=== PATIENT | female | born 1965 | race Hispanic/Latino ===

== ENCOUNTER 2017-01-06 05:41 | Emergency (ER) | payer OTHER ==
[2017-01-06 05:47] VITALS: BMI 43.5
--- NOTE | 2017-01-06 06:16 | ED PDOC ---
Arrival/HPI - General Historian: Patient - History of Present Illness Time/Duration: 24 hours Symptom Course: Unchanged <Nigel Kahn - Last Filed: 01/06/17 06:37> <Clarence Hansen - Last Filed: 01/06/17 09:02> - General Chief Complaint: Back Pain Time Seen by Provider: 01/06/17 05:43 - History of Present Illness Narrative History of Present Illness (Text): 01/06/17 06:07 51 year old female with past medical history of RA, lumbar and cervical laminectomy, PVD presents to [facility] complaining of left lower back pain. Patient reports she hurt her back last night when she bend over to pickup something on the floor. She said it felt like her back was locked and the excoriating pain started. She describes the pain as sharp in quality and it radiates down to both of her legs. Patient states the pain is worse with any movement and she does not take any pain medications at home. Patient denies having urinary or fecal incontinence. She further denies headache, fever, chills , shortness of breath, chest pain, nausea or vomiting. (Nigel Kahn) Past Medical History - Provider Review Nursing Documentation Reviewed: Yes - Infectious Disease Hx of Infectious Diseases: None - Tetanus Immunization Tetanus Immunization: Up to Date (tetanus 2 yrs ago) - Past Medical History Past Medical History: No Previous - Cardiac Hx Cardiac Disorders: Yes Hx Peripheral Edema: Yes Hx Peripheral Vascular Disease: Yes - Pulmonary Hx Respiratory Disorders: Yes Hx Bronchitis: Yes - Neurological Hx Neurological Disorder: Yes Hx Vertigo: Yes - HEENT Hx HEENT Disorder: No - Renal Hx Renal Disorder: No - Endocrine/Metabolic Hx Endocrine Disorders: No - Hematological/Oncological Hx Blood Disorders: No - Integumentary Hx Dermatological Disorder: Yes Hx Cellulitis: Yes (s/p arthroscopy right knee) - Musculoskeletal/Rheumatological Hx Musculoskeletal Disorders: Yes Hx Arthritis: Yes Hx Back Pain: Yes - Gastrointestinal Hx Gastrointestinal Disorders: No - Genitourinary/Gynecological Hx Genitourinary Disorders: No - Psychiatric Hx Psychophysiologic Disorder: No Hx Substance Use: No - Surgical History Hx Appendectomy: Yes Hx Cholecystectomy: Yes Hx Orthopedic Surgery: Yes Other/Comment: upper spine surgery jul 2014, lumbar surgery - Anesthesia Hx Anesthesia: Yes Hx Anesthesia Reactions: No Hx Malignant Hyperthermia: No - Suicidal Assessment Feels Threatened In Home Enviroment: No <Nigel Kahn - Last Filed: 01/06/17 06:37> Family/Social History - Physician Review Nursing Documentation Reviewed: Yes Family/Social History: No Known Family HX Smoking Status: Never Smoked Hx Alcohol Use: No Hx Substance Use: No Hx Substance Use Treatment: No <Nigel Kahn - Last Filed: 01/06/17 06:37> Allergies/Home Meds <Nigel Kahn - Last Filed: 01/06/17 06:37> <Clarence Hansen - Last Filed: 01/06/17 09:02> Allergies/Adverse Reactions: Allergies iodine Allergy (Verified 06/01/16 19:34) RASH Penicillins Adverse Reaction (Verified 03/17/16 21:27) URTICARIA Home Medications: Home Meds Medication Instructions Recorded Confirmed Suvorexant [Belsomra] 20 mg PO HS 03/07/16 03/17/16 Furosemide [Lasix] 1 tab PO DAILY 03/17/16 03/17/16 Review of Systems - Physician Review All systems were reviewed & negative as marked: Yes - Review of Systems Constitutional: Normal Eyes: Normal ENT: Normal Respiratory: Normal. absent: SOB, Cough Cardiovascular: Normal. absent: Chest Pain, Syncope Gastrointestinal: Normal. absent: Abdominal Pain, Stool Changes, Constipation, Diarrhea, Nausea, Vomiting Musculoskeletal: Back Pain (lower left pain) Skin: Normal. absent: Rash, Ulcer Neurological: Normal. absent: Headache, Dizziness Endocrine: Normal. absent: Diaphoresis, Polyuria, Polydipsia Hemo/Lymphatic: Normal Psychiatric: Normal. absent: Anxiety, Depression <Nigel Kahn - Last Filed: 01/06/17 06:37> Physical Exam Vital Signs Reviewed: Yes Temperature: Afebrile Blood Pressure: Normal Pulse: Regular Respiratory Rate: Normal Appearance: Positive for: Well-Appearing, Non-Toxic, Comfortable Pain Distress: Moderate Mental Status: Positive for: Alert and Oriented X 3 - Systems Exam Head: Present: Atraumatic, Normocephalic Pupils: Present: PERRL Extroacular Muscles: Present: EOMI Conjunctiva: Present: Normal Neck: Present: Normal Range of Motion Respiratory/Chest: Present: Clear to Auscultation, Good Air Exchange. No: Respiratory Distress, Accessory Muscle Use Cardiovascular: Present: Regular Rate and Rhythm, Normal S1, S2. No: Murmurs Abdomen: Present: Normal Bowel Sounds. No: Tenderness, Distention, Peritoneal Signs Back: Present: Normal Inspection, Paraspinal Tenderness (left side tenderness in the lumbar region). No: Midline Tenderness Upper Extremity: Present: Normal Inspection, Neurovascularly Intact. No: Cyanosis, Edema Lower Extremity: Present: Edema (chronic bilateral lower extremity edema), Neurovascularly Intact Neurological: Present: GCS=15, CN II-XII Intact, Speech Normal Skin: Present: Warm, Dry, Normal Color. No: Rashes Psychiatric: Present: Alert, Oriented x 3, Normal Insight, Normal Concentration <Nigel Kahn - Last Filed: 01/06/17 06:37> Vital Signs Temp Pulse Resp BP Pulse Ox 01/06/17 08:00 97.6 F 71 18 116/62 96 01/06/17 06:59 97.8 F 80 20 138/78 98 01/06/17 05:53 97.9 F 79 18 134/72 100 Medical Decision Making <Nigel Kahn - Last Filed: 01/06/17 06:37> - Transfer of Care Patient signed out to Dr:Chao cesar response to meds and dispo <Clarence Hansen - Last Filed: 01/06/17 09:02> ED Course and Treatment: 01/06/17 06:22 -Toradol -Flexeril -Reassess DDx: Chronic back pain, sciatica, paraspinal muscle strain (Nigel Kahn) 01/06/17 06:46pt seen and examined with resident, agree with plan and exam treatment course (Clarence Hansen) - Medication Orders Current Medication Orders: Discontinued Medications Cyclobenzaprine HCl (Flexeril) 10 mg PO STAT STA Stop: 01/06/17 06:07 Last Admin: 01/06/17 06:32 Dose: 10 MG Ketorolac Tromethamine (Toradol) 60 mg IM STAT STA Stop: 01/06/17 06:06 Last Admin: 01/06/17 06:32 Dose: 60 MG IM Administration Charges Document 01/06/17 06:32 MICHELLE (Rec: 01/06/17 06:32 Fabio [id number]) Injection Site MAR Injection Site Left Gluteus Ryan Charges for Administration # of IM Administrations 1 - PA / BUILDING ESTIMATOR / Resident Statement MD/ has examined the patient and agrees with the treatment plan. <Clarence Hansen - Last Filed: 01/06/17 09:02> Disposition/Present on Arrival - Present on Arrival Any Indicators Present on Arrival: No History of DVT/PE: No History of Uncontrolled Diabetes: No Urinary Catheter: No History of Decub. Ulcer: No History Surgical Site Infection Following: None - Disposition Have Diagnosis and Disposition been Completed?: Yes Disposition Time: 07:00 <KahnNigel - Last Filed: 01/06/17 06:37> - Present on Arrival Any Indicators Present on Arrival: No - Disposition Have Diagnosis and Disposition been Completed?: Yes Disposition Time: 07:00 <Clarence Hansen - Last Filed: 01/06/17 09:02> - Disposition Diagnosis: Low back pain, Chronic back pain Disposition: HOME/ ROUTINE Condition: IMPROVED Discharge Instructions (ExitCare): Acute Low Back Pain (DC), Back Exercises (ED ) Additional Instructions: Daniel, thank you for letting us take care of you today. Your provider was Dr. Cesar. You were treated for Back Pain. The emergency medical care you received today was directed at your acute symptoms. If you were prescribed any medication, please fill it and take as directed. It may take several days for your symptoms to resolve. Return to the Emergency Department if your symptoms worsen, do not improve, or if you have any other problems. Please contact your doctor or call one of the physicians/clinics you have been referred to that are listed on the Patient Visit Information form that is included in your discharge packet. Bring any paperwork you were given at discharge with you along with any medications you are taking to your follow up visit. Our treatment cannot replace ongoing medical care by a primary care provider (PCP) outside of the emergency department. Thank you for allowing the [facility] team to be part of your care today. If you had an X-Ray or CT scan: A Radiologist will review the ED reading if any change in treatment is needed we will contact you. If you had a blood, urine, or wound culture: It will take several days for the results, if any change in treatment is needed we will contact you. If you had an STI test: It will take 48 hours for the results. Please call after 1 week if you have not heard back. Referrals: Olena Tobin MD [Primary Care Provider] - Follow up with primary Forms: WORK NOTE
--- NOTE | 2017-01-06 07:53 | ED PDOC ---
Physical Exam Vital Signs Reviewed: Yes Vital Signs Temp Pulse Resp BP Pulse Ox 01/06/17 08:00 97.6 F 71 18 116/62 96 01/06/17 06:59 97.8 F 80 20 138/78 98 01/06/17 05:53 97.9 F 79 18 134/72 100 Temperature: Afebrile Blood Pressure: Normal Pulse: Regular Respiratory Rate: Normal Medical Decision Making ED Course and Treatment: 01/06/17 07:49 Patient signed out to me by Dr. Hansen. Pending re-evaluation. 01/06/17 08:05 On re-evaluation, patient able to ambulate with cane at baseline. Patient denies any numbness or weakness. Patient states she feels better and is in no acute distress. I have discussed the plan with the patient, who expresses understanding. Patient in agreement with plan to be discharged home. Patient reports she has Flexeril at home and does not need any additional medication. Patient is stable for discharge. Patient was instructed to follow up with physician or return if symptoms worsen or new concerning symptoms arise. - Medication Orders Current Medication Orders: Discontinued Medications Cyclobenzaprine HCl (Flexeril) 10 mg PO STAT STA Stop: 01/06/17 06:07 Last Admin: 01/06/17 06:32 Dose: 10 MG Ketorolac Tromethamine (Toradol) 60 mg IM STAT STA Stop: 01/06/17 06:06 Last Admin: 01/06/17 06:32 Dose: 60 MG IM Administration Charges Document 01/06/17 06:32 RJR (Rec: 01/06/17 06:32 RJR [id number]) Injection Site MAR Injection Site Left Gluteus Ryan Charges for Administration # of IM Administrations 1 - Scribe Statement The provider has reviewed the documentation as recorded by the Chasityibwilfrid Fatima Provider Scribe Attestation: All medical record entries made by the Scribe were at my direction and personally dictated by me. I have reviewed the chart and agree that the record accurately reflects my personal performance of the history, physical exam, medical decision making, and the department course for this patient. I have also personally directed, reviewed, and agree with the discharge instructions and disposition. Disposition/Present on Arrival - Present on Arrival Any Indicators Present on Arrival: No History of DVT/PE: No History of Uncontrolled Diabetes: No Urinary Catheter: No History of Decub. Ulcer: No History Surgical Site Infection Following: None - Disposition Have Diagnosis and Disposition been Completed?: Yes Diagnosis: Low back pain, Chronic back pain Disposition: HOME/ ROUTINE Disposition Time: 08:05 Patient Plan: Discharge Patient Problems: Current Active Problems Problem Status Diagnosed Chronic back pain Acute Low back pain Acute Condition: IMPROVED Discharge Instructions (ExitCare): Acute Low Back Pain (DC), Back Exercises (ED ) Additional Instructions: Ms Sanchez, thank you for letting us take care of you today. Your provider was Dr. Cesar. You were treated for Back Pain. The emergency medical care you received today was directed at your acute symptoms. If you were prescribed any medication, please fill it and take as directed. It may take several days for your symptoms to resolve. Return to the Emergency Department if your symptoms worsen, do not improve, or if you have any other problems. Please contact your doctor or call one of the physicians/clinics you have been referred to that are listed on the Patient Visit Information form that is included in your discharge packet. Bring any paperwork you were given at discharge with you along with any medications you are taking to your follow up visit. Our treatment cannot replace ongoing medical care by a primary care provider (PCP) outside of the emergency department. Thank you for allowing the [facility] team to be part of your care today. If you had an X-Ray or CT scan: A Radiologist will review the ED reading if any change in treatment is needed we will contact you. If you had a blood, urine, or wound culture: It will take several days for the results, if any change in treatment is needed we will contact you. If you had an STI test: It will take 48 hours for the results. Please call after 1 week if you have not heard back. Referrals: Olena Tobin MD [Primary Care Provider] - Follow up with primary Forms: WORK NOTE
[2017-01-06 08:02] VITALS: BP 116/62; PULSE 71; RESP 18; TEMP 97.6; O2SAT 96
== END 2017-01-06 08:49 | disposition home or self-care (01) ==
LOC: ED 05:41
DX: G89.29 Other chronic pain (principal); M54.5 Low back pain
CPT/HCPCS: 96372; 99283; J1885

== ENCOUNTER 2017-02-16 10:10 | Emergency (ER) | payer OTHER ==
[2017-02-16 10:11] VITALS: BMI 43.5
--- NOTE | 2017-02-16 11:05 | ED PDOC ---
Arrival/HPI - General Time Seen by Provider: 02/16/17 11:00 Historian: Patient - History of Present Illness Narrative History of Present Illness (Text): 02/16/17 11:03 52 y/o female, pmh including rheumatoid arthritis, penicillin allergy, on her period now, had bilateral tubal ligation, c/o rt. hand 5th digit knuckle pain started this morning with no fall or trauma. Aching pain, aggravated by touching, no fever or chills, no headache or night sweat, no palpitation, no skin redness, no other medical or psychological complaints. Past Medical History - Provider Review Nursing Documentation Reviewed: Yes - Infectious Disease Hx of Infectious Diseases: None - Tetanus Immunization Tetanus Immunization: Up to Date (tetanus 2 yrs ago) - Past Medical History Past Medical History: No Previous - Cardiac Hx Cardiac Disorders: Yes Hx Peripheral Edema: Yes Hx Peripheral Vascular Disease: Yes - Pulmonary Hx Respiratory Disorders: Yes Hx Bronchitis: Yes - Neurological Hx Neurological Disorder: Yes Hx Vertigo: Yes - HEENT Hx HEENT Disorder: No - Renal Hx Renal Disorder: No - Endocrine/Metabolic Hx Endocrine Disorders: No - Hematological/Oncological Hx Blood Disorders: No - Integumentary Hx Dermatological Disorder: Yes Hx Cellulitis: Yes (s/p arthroscopy right knee) - Musculoskeletal/Rheumatological Hx Musculoskeletal Disorders: Yes Hx Arthritis: Yes Hx Back Pain: Yes - Gastrointestinal Hx Gastrointestinal Disorders: No - Genitourinary/Gynecological Hx Genitourinary Disorders: No - Psychiatric Hx Psychophysiologic Disorder: No Hx Substance Use: No - Surgical History Hx Appendectomy: Yes Hx Cholecystectomy: Yes Hx Orthopedic Surgery: Yes Other/Comment: upper spine surgery jul 2014, lumbar surgery - Anesthesia Hx Anesthesia: Yes Hx Anesthesia Reactions: No Hx Malignant Hyperthermia: No - Suicidal Assessment Feels Threatened In Home Enviroment: No Family/Social History - Physician Review Nursing Documentation Reviewed: Yes Family/Social History: Unknown Family HX Smoking Status: Never Smoked Hx Alcohol Use: No Hx Substance Use: No Hx Substance Use Treatment: No Allergies/Home Meds Allergies/Adverse Reactions: Allergies iodine Allergy (Verified 06/01/16 19:34) RASH Penicillins Adverse Reaction (Verified 03/17/16 21:27) URTICARIA Home Medications: Home Meds Medication Instructions Recorded Confirmed Suvorexant [Belsomra] 20 mg PO HS 03/07/16 03/17/16 Furosemide [Lasix] 1 tab PO DAILY 03/17/16 03/17/16 Review of Systems - Review of Systems Constitutional: absent: Fatigue, Fevers Eyes: absent: Vision Changes ENT: absent: Hearing Changes Respiratory: absent: SOB, Cough Cardiovascular: absent: Chest Pain Gastrointestinal: absent: Abdominal Pain, Vomiting Musculoskeletal: Arthralgias. absent: Back Pain, Neck Pain, Joint Swelling, Myalgias Skin: absent: Rash, Pruritis, Skin Lesions, Laceration, Abscess, Ulcer, Cellulitis Neurological: absent: Headache, Dizziness, Focal Weakness, Gait Changes, Speech Changes, Facial Droop, Disequilibrium, Seizure Physical Exam Vital Signs Reviewed: Yes Temperature: Afebrile Blood Pressure: Normal Pulse: Regular Respiratory Rate: Normal Appearance: Positive for: Well-Appearing, Non-Toxic Pain Distress: Severe Mental Status: Positive for: Alert and Oriented X 3 - Systems Exam Head: Present: Atraumatic, Normocephalic Pupils: Present: PERRL Extroacular Muscles: Present: EOMI Conjunctiva: Present: Normal Mouth: Present: Moist Mucous Membranes Neck: Present: Normal Range of Motion Respiratory/Chest: Present: Clear to Auscultation, Good Air Exchange. No: Respiratory Distress, Accessory Muscle Use Cardiovascular: Present: Regular Rate and Rhythm, Normal S1, S2. No: Murmurs Abdomen: Present: Normal Bowel Sounds. No: Tenderness, Distention, Peritoneal Signs Back: Present: Normal Inspection Upper Extremity: Present: Normal Inspection, Capillary Refill < 2s, Other (Rt. hand: +ttp on the rt. hand 5th MCPJ region with no erythematous, no cellulitis or streaking, no ulcer, FROM without limitation, sensation intact, motor 5/5, + radial pulse, capillary refill< 2 seconds, neurovascular intact, no skin discoloration. ). No: Cyanosis, Edema, Deformity Lower Extremity: Present: Normal Inspection. No: Edema Neurological: Present: GCS=15, CN II-XII Intact, Speech Normal Skin: Present: Warm, Dry, Normal Color. No: Rashes Psychiatric: Present: Alert, Oriented x 3, Normal Insight, Normal Concentration Medical Decision Making ED Course and Treatment: 02/16/17 11:06 -xray -indomethacin/indomethacin -observe and reassess 02/16/17 14:34 -xray show no fracture or dislocation -pain improved with the medications, tenderness on the 5t. hand 5th knuckle resolved. -Discharge home with indomethacin, ice compression, follow up with your own pmd and dope dry house operator within 2 days, return to the ER for any new or worsening signs or symptoms. - RAD Interpretation Radiology Orders: 02/16/17 13:05 HAND RIGHT 3 VIEWS [RAD] Stat normal rt. hand radiograph Physician Scientist: Radiologist - Medication Orders Current Medication Orders: Discontinued Medications Indomethacin (Indocin) 50 mg PO ONCE ONE Stop: 02/16/17 13:11 Oxycodone/Acetaminophen (Percocet 5/325 Mg Tab) Confirm Administered Dose 1 tab .ROUTE .STK-MED ONE Stop: 02/16/17 13:08 Tramadol HCl (Ultram) Confirm Administered Dose 100 mg .ROUTE .STK-MED ONE Stop: 02/16/17 13:12 - PA / STEEL POST INSTALLER SUPERVISOR / Resident Statement / has reviewed & agrees with the documentation as recorded. Disposition/Present on Arrival - Present on Arrival Any Indicators Present on Arrival: No History of DVT/PE: No History of Uncontrolled Diabetes: No Urinary Catheter: No History of Decub. Ulcer: No History Surgical Site Infection Following: None - Disposition Have Diagnosis and Disposition been Completed?: Yes Diagnosis: Arthritis Disposition: HOME/ ROUTINE Disposition Time: 14:35 Patient Plan: Discharge Patient Problems: Current Active Problems Problem Status Onset Arthritis Acute Condition: GOOD Additional Instructions: -Discharge home with indomethacin, ice compression, follow up with your own pmd and dope dry house operator within 2 days, return to the ER for any new or worsening signs or symptoms. Prescriptions: Indomethacin [Indocin] 50 mg PO TID PRN #30 cap PRN Reason: Other Referrals: Olena Tobin MD [Primary Care Provider] - Follow up with primary Forms: WORK NOTE
[2017-02-16] MEDS ORDERED: Oxycodone/Acetaminophen 5/325 mg Tab ONE (13:07)
--- NOTE | 2017-02-16 16:32 | RAD ---
PROCEDURE: Right Hand Radiographs. HISTORY: COMPARISON: None. FINDINGS: BONES: Normal. No fracture. JOINTS: Normal. No osteoarthritic changes. SOFT TISSUES: Normal. OTHER FINDINGS: None. IMPRESSION: Normal right hand radiographs.
[2017-02-16 20:23] VITALS: BP 144/71; PULSE 77; RESP 18; TEMP 97.5; O2SAT 96
== END 2017-02-16 14:45 | disposition home or self-care (01) ==
LOC: ED 10:10
DX: M13.841 Other specified arthritis, right hand (principal)

== ENCOUNTER 2017-05-05 03:39 | Emergency (ER) | payer OTHER ==
[2017-05-05 04:18] VITALS: BMI 41.5
[2017-05-05 04:19] VITALS: O2SAT 97
[2017-05-05] MEDS ORDERED: Sodium Chloride 0.9% 1,000 ML IV STA (04:31)
[2017-05-05 04:34] VITALS: TEMP 98
--- NOTE | 2017-05-05 04:36 | ED PDOC ---
Arrival/HPI - General Chief Complaint: GI Problem Time Seen by Provider: 05/05/17 03:44 Historian: Patient - History of Present Illness Narrative History of Present Illness (Text): 05/05/17 04:33 Madelin Medel is a 52 year old female who presents to the emergency department complaining of 4 day duration of multiple episodes of watery diarrhea. Reports that symptoms are associated with abdominal cramping. Denies any recent travel, eating out, and antibiotics use. Denies fever, chills, headache, dizziness, chest pain, SOB, nausea, vomiting, or any other complaints at this time. Time/Duration: Other (4 day ) Symptom Onset: Gradual Severity Level: Mild Activities at Onset: Light Past Medical History - Provider Review Nursing Documentation Reviewed: Yes - Infectious Disease Hx of Infectious Diseases: None - Tetanus Immunization Tetanus Immunization: Up to Date (tetanus 2 yrs ago) - Past Medical History Past Medical History: No Previous - Cardiac Hx Cardiac Disorders: Yes Hx Peripheral Edema: Yes Hx Peripheral Vascular Disease: Yes - Pulmonary Hx Respiratory Disorders: Yes Hx Bronchitis: Yes - Neurological Hx Neurological Disorder: Yes Hx Vertigo: Yes - HEENT Hx HEENT Disorder: No - Renal Hx Renal Disorder: No - Endocrine/Metabolic Hx Endocrine Disorders: No - Hematological/Oncological Hx Blood Disorders: No - Integumentary Hx Dermatological Disorder: Yes Hx Cellulitis: Yes (s/p arthroscopy right knee) - Musculoskeletal/Rheumatological Hx Musculoskeletal Disorders: Yes Hx Arthritis: Yes Hx Back Pain: Yes Hx Osteoarthritis: Yes Hx Rheumatoid Arthritis: Yes - Gastrointestinal Hx Gastrointestinal Disorders: No - Genitourinary/Gynecological Hx Genitourinary Disorders: No - Psychiatric Hx Psychophysiologic Disorder: No Hx Substance Use: No - Surgical History Hx Appendectomy: Yes Hx Cholecystectomy: Yes Hx Orthopedic Surgery: Yes Other/Comment: upper spine surgery jul 2014, lumbar surgery - Anesthesia Hx Anesthesia: Yes Hx Anesthesia Reactions: No Hx Malignant Hyperthermia: No - Suicidal Assessment Feels Threatened In Home Enviroment: No Family/Social History - Physician Review Nursing Documentation Reviewed: Yes Family/Social History: No Known Family HX Smoking Status: Never Smoked Hx Alcohol Use: No Hx Substance Use: No Hx Substance Use Treatment: No Allergies/Home Meds Allergies/Adverse Reactions: Allergies Penicillins Adverse Reaction (Verified 03/17/16 21:27) URTICARIA Home Medications: Home Meds Medication Instructions Recorded Confirmed Furosemide [Lasix] 40 mg PO DAILY 03/17/16 05/05/17 Cyclobenzaprine [Cyclobenzaprine 10 mg PO BID PRN 05/05/17 05/05/17 HCl] Gabapentin [Neurontin] 600 mg PO 5XD 05/05/17 05/05/17 Leflunomide [Leflunomide] 10 mg PO DAILY 05/05/17 05/05/17 Lidocaine 4% [Lidocaine 4% 50 ml 1 applic EXT PRN PRN 05/05/17 05/05/17 Topical (or)] Meclizine [Antivert] 12.5 mg PO DAILY 05/05/17 05/05/17 Melatonin/Pyridoxine HCl (B6) 3 mg PO HS 05/05/17 05/05/17 [Melatonin 3 mg Tablet] hydrOXYzine HCl [Atarax] 25 mg PO HS 05/05/17 05/05/17 predniSONE [Prednisone] 20 mg PO BID 05/05/17 05/05/17 Physical Exam - Physical Exam Narrative Physical Exam (Text): Constitutional: Normal. absent: Fatigue, Weight Change, Fevers Eyes: Normal ENT: Normal Respiratory: Normal absent: SOB, Cough, Sputum Cardiovascular: Normal absent: Chest pain, Palpitations, Syncope Gastrointestinal:Present: Abdominal cramps, Diarrhea absent: Nausea, Vomiting Genitourinary: Normal. absent: Dysuria, Frequency, Hematuria Musculoskeletal: Normal. absent: Arthralgias, Back Pain, Neck Pain Skin: Normal Neurological: Normal absent: Focal Weakness Endocrine: Normal Hemo/Lymphatic: Normal Psychiatric: Normal - Physical exam Patient appears age appropriate, speaking full sentences without difficulty. - Systems Exam Head: Present: Atraumatic, Normocephalic Pupils: Present: PERRL Extraocular Muscles: Present: EOMI Conjunctiva: Present: Normal Mouth: Present: Moist Mucous Membranes Neck: Present: Normal Range of Motion. No: MIDLINE TENDERNESS, Paraspinal Tenderness Respiratory/Chest: Present: Clear to Auscultation, Good Air Exchange. No: Respiratory Distress, Accessory Muscle Use, Tachypnic Cardiovascular: Present: Regular Rate and Rhythm, Normal S1, S2, Peripheral Pulses Present. No: Murmurs Abdomen: Present: Normal Bowel Sounds, No: Tenderness, Peritoneal Signs, Rebound, Guarding, Distention Back: Present: Normal Inspection. No: Midline Tenderness, Paraspinal Tenderness Upper Extremity: Present: Normal Inspection. No: Cyanosis, Edema Lower Extremity: Present: Normal Inspection. No: Edema Neurological: Present: GCS=15, Speech Normal, cranial nerves II through XII fully intact with no cerebellar abnormality, neuro-sensory fully intact. No focal neurological deficits. Skin: Present: Warm, Dry, Normal Color. No: Rashes Lymphatic: Present: OX3, NI, NC Psychiatric: Present: Alert, Oriented x 3, Normal Insight, Normal Concentration Vital Signs Reviewed: Yes Vital Signs Temp Pulse Resp BP Pulse Ox 05/05/17 04:18 98.0 F 80 16 150/79 97 Temperature: Afebrile Blood Pressure: Normal Pulse: Regular Respiratory Rate: Normal Appearance: Positive for: Well-Appearing, Non-Toxic, Comfortable Pain Distress: None Mental Status: Positive for: Alert and Oriented X 3 Medical Decision Making ED Course and Treatment: 05/05/17 04:36 Impression: A 52 year old female who presents to the ed complaining of 4 day duration of diarrhea and abdominal cramping. Unremarkable exam. Abdomen soft and nontender. Plan: -- CT abdomen pelvis -- Labs -- IV fluids -- Reassess and disposition Progress Notes: 05/05/17 06:47 CT FINDINGS: Lower thorax: No acute findings. ABDOMEN: Liver: Mild fatty liver. Gallbladder and bile ducts: Cholecystectomy. No ductal dilation. Pancreas: Unremarkable. No mass. No ductal dilation. Spleen: Unremarkable. No splenomegaly. Adrenals: Unremarkable. No mass. Kidneys and ureters: 4 cm right renal cyst. No hydronephrosis. Stomach and bowel: Unremarkable. No dilatation of small or large bowel. No mucosal thickening. Appendix: Absent. PELVIS: Bladder: Unremarkable. No mass. Reproductive: Unremarkable as visualized. ABDOMEN and PELVIS: Intraperitoneal space: Unremarkable. No free air. No significant fluid collection. Bones/joints: Narrowing of L2-3 disc space. Soft tissues: Unremarkable. Vasculature: Unremarkable. No abdominal aortic aneurysm. Lymph nodes: No enlarged lymph nodes. IMPRESSION: No acute abnormality. Dictated By: Pamela Angulo On reevaluation, patient reports that she feels much better and would like to be discharged home. Patient's repeat abdominal exam is soft, nontender, non distended with positive bowel sounds in all 4 quadrants and no peritoneal signs. Patient is tolerating PO without any difficulty. Due to patient's duration of symptoms and severity, diarrhea may be presumed infectious. Patient will be discharged home on Cipro. Had a long discussion with patient regarding dangers of fluoroquinolones and potential ligamentous damage. Patient is aware of the risks and is willing to fill the prescription. Pt states she understands to return to the ER right away for new or worsening symptoms or for inability to f/u with PMD or specialist as instructed. Patient states that she fully agrees with and understands discharge instructions. States that she agrees with the plan and disposition. Verbalized and repeated discharge instructions and plan. I have given the patient opportunity to ask any additional questions. - Lab Interpretations Lab Results: 05/05/17 05:15 05/05/17 05:15 Lab Results 05/05/17 05:15: PT 10.9, INR 1.01, APTT 22.3 L 05/05/17 05:15: WBC 8.0 D, RBC 3.95, Hgb 11.8 L, Hct 35.5 L, MCV 89.9, MCH 29.9 , MCHC 33.2, RDW 12.5, Plt Count 208, MPV 11.1 H, Gran % 58.7, Lymph % (Auto) 30.1, [place] % (Auto) 9.0 H, Eos % (Auto) 2.1, Baso % (Auto) 0.1, Gran # 4.68, Lymph # 2.4, [place] # 0.7 H, Eos # 0.2, Baso # 0.01 05/05/17 05:15: Sodium 139, Potassium 3.4 L, Chloride 101, Carbon Dioxide 27, Anion Gap 14, BUN 11, Creatinine 0.5, Est GFR ( Amer) > 60, Est GFR (Non- Af Amer) > 60, Random Glucose 101, Calcium 8.7, Total Bilirubin 0.6, AST 25, ALT 14, Alkaline Phosphatase 70, Total Protein 7.2, Albumin 3.9, Globulin 3.4, Albumin/Globulin Ratio 1.1 - RAD Interpretation Radiology Orders: 05/05/17 04:31 ABD & PELVIS IV CONTRAST ONLY [CT] Stat - Medication Orders Current Medication Orders: Discontinued Medications Sodium Chloride (Sodium Chloride 0.9%) 1,000 mls @ 1,000 mls/hr IV .Q1H STA Stop: 05/05/17 05:30 Last Admin: 05/05/17 05:26 Dose: 1,000 mls/hr Iohexol (Omnipaque 350 100 Ml) Confirm Administered Dose 350 mg .ROUTE .STK-MED ONE Stop: 05/05/17 04:58 - Scribe Statement The provider has reviewed the documentation as recorded by the Chasityibe Wilian Bender Provider Attestation: All medical record entries made by the Scribe were at my direction and personally dictated by me. I have reviewed the chart and agree that the record accurately reflects my personal performance of the history, physical exam, medical decision making, and the department course for this patient. I have also personally directed, reviewed, and agree with the discharge instructions and disposition. Disposition/Present on Arrival - Present on Arrival Any Indicators Present on Arrival: No History of DVT/PE: No History of Uncontrolled Diabetes: No Urinary Catheter: No History of Decub. Ulcer: No History Surgical Site Infection Following: None - Disposition Have Diagnosis and Disposition been Completed?: Yes Diagnosis: Diarrhea Disposition: HOME/ ROUTINE Disposition Time: 06:53 Patient Plan: Discharge Condition: GOOD Discharge Instructions (ExitCare): Acute Diarrhea (ED) Additional Instructions: PLEASE RETURN TO THE EMERGENCY DEPARTMENT FOR NEW OR WORSENING SYMPTOMS. RETURN RIGHT AWAY IF YOU CANNOT FOLLOW UP WITH YOUR PRIMARY CARE DOCTOR, CLINIC, OR SPECIALIST IN 1-2 DAYS. Prescriptions: Ciprofloxacin [Cipro] 500 mg PO Q12 #6 tab Referrals: Olena Tobin MD [Primary Care Provider] - Follow up with primary Tonya Briggs MD, MD [Medical Doctor] - Follow up with primary Forms: [employer] (Hungarian)
[2017-05-05] MEDS ORDERED: Iohexol 350 MG/100 ML VIAL ONE (04:57)
[2017-05-05 05:29] LABS: BASO # 0.01 K/mm3 (0.0-2.0); BASO % 0.1 % (0.0-3.0); EOS # 0.2 (0.0-0.7); EOS % 2.1 % (1.5-5.0); GRAN # 4.68 (1.4-6.5); GRAN % 58.7 % (50.0-68.0); HEMOGLOBIN 11.8 g/dL (12.0-16.0); LYMPH # 2.4 (1.2-3.4); LYMPH % 30.1 % (22.0-35.0); MEAN CELL VOLUME 89.9 fl (80.0-105.0); MEAN CORPUSCULAR HEMOGLOBIN 29.9 pg (25.0-35.0); MEAN CORPUSCULAR HGB CONC 33.2 g/dl (31.0-37.0); MEAN PLATELET VOLUME 11.1 fl (7.0-11.0); MONO # 0.7 (0.1-0.6); PLATELET COUNT 208 10^3/uL (120.0-450.0); RBC 3.95 10^6/uL (3.5-6.1); RED CELL DISTRIBUTION WIDTH 12.5 % (11.5-14.5)
[2017-05-05 05:35] LABS: ALB/GLOB RATIO 1.1 (1.1-1.8); ALBUMIN 3.9 g/dL (3.0-4.8); ALT/SGPT 14 U/L (7-56); AST/SGOT 25 U/L (15-39); BLOOD UREA NITROGEN 11 mg/dL (7-21); CALCIUM 8.7 mg/dL (8.4-10.5); GFR AFRICAN-AMERICAN > 60; GFR NON-AFRICAN AMERICAN > 60
[2017-05-05 05:37] LABS: INR 1.01 (0.93-1.08); PARTIAL THROMBOPLASTIN TIME 22.3 Seconds (23.7-30.8); PROTHROMBIN TIME 10.9 Seconds (9.9-11.8)
--- NOTE | 2017-05-05 06:42 | CT ---
EXAM: CT Abdomen and Pelvis With Intravenous Contrast CLINICAL HISTORY: 52 years old, female; Pain; Abdominal pain; Generalized; Prior surgery; Surgery date: 6+ months; Surgery type: Appendix, gallbladder; Additional info: Abd pain, diarrhea TECHNIQUE: Axial computed tomography images of the abdomen and pelvis with intravenous contrast. All CT scans at this facility use one or more dose reduction techniques, viz.: automated exposure control; ma/kV adjustment per patient size (including targeted exams where dose is matched to indication; i.e. head); or iterative reconstruction technique. Coronal and sagittal reformatted images were created and reviewed. CONTRAST: 96 mL of OMNI 350 administered intravenously. EXAM DATE/TIME: 05/05/2017 4:31 AM COMPARISON: No relevant prior studies available. FINDINGS: Lower thorax: No acute findings. ABDOMEN: Liver: Mild fatty liver. Gallbladder and bile ducts: Cholecystectomy. No ductal dilation. Pancreas: Unremarkable. No mass. No ductal dilation. Spleen: Unremarkable. No splenomegaly. Adrenals: Unremarkable. No mass. Kidneys and ureters: 4 cm right renal cyst. No hydronephrosis. Stomach and bowel: Unremarkable. No dilatation of small or large bowel. No mucosal thickening. Appendix: Absent. PELVIS: Bladder: Unremarkable. No mass. Reproductive: Unremarkable as visualized. ABDOMEN and PELVIS: Intraperitoneal space: Unremarkable. No free air. No significant fluid collection. Bones/joints: Narrowing of L2-3 disc space. Soft tissues: Unremarkable. Vasculature: Unremarkable. No abdominal aortic aneurysm. Lymph nodes: No enlarged lymph nodes. IMPRESSION: No acute abnormality.
[2017-05-05 07:15] VITALS: BP 155/73; PULSE 86; RESP 18
== END 2017-05-05 07:15 | disposition home or self-care (01) ==
LOC: ED 03:39
DX: R19.7 Diarrhea, unspecified (principal); I73.9 Peripheral vascular disease, unspecified
CPT/HCPCS: 74177; 80053; 85025; 85610; 85730; 96360; 99283; J7040; Q9967

== ENCOUNTER 2017-05-30 05:17 | Emergency (ER) | payer OTHER ==
[2017-05-30 05:18] VITALS: BMI 41.5
--- NOTE | 2017-05-30 05:36 | ED PDOC ---
Arrival/HPI - General Chief Complaint: Lower Extremity Problem/Injury Time Seen by Provider: 05/30/17 05:22 Historian: Patient - History of Present Illness Narrative History of Present Illness (Text): 05/30/17 05:33 Madelin Medel is a 52 year old female who presents to the emergency department complaining of bilateral lower extremity pain since last night. States that symptoms are similar to previous episodes of neuropathy. Reports she took 3 Neurontin tablets and applied lidocaine cream to the area for minimal relief. States that pain is worse on right leg which is aggravated by movement. Denies any numbness/weakness of extremities. Denies fever, chills, chest pain, SOB, or any other complaints at this time. Time/Duration: Other (yesterday night ) Symptom Onset: Gradual Symptom Course: Unchanged Severity Level: Mild Activities at Onset: Light Past Medical History - Provider Review Nursing Documentation Reviewed: Yes - Infectious Disease Hx of Infectious Diseases: None - Tetanus Immunization Tetanus Immunization: Up to Date (tetanus 2 yrs ago) - Reproductive Menopause: No - Past Medical History Past Medical History: No Previous - Cardiac Hx Cardiac Disorders: Yes Hx Peripheral Edema: Yes Hx Peripheral Vascular Disease: Yes - Pulmonary Hx Respiratory Disorders: Yes Hx Bronchitis: Yes - Neurological Hx Neurological Disorder: Yes Hx Vertigo: Yes - HEENT Hx HEENT Disorder: No - Renal Hx Renal Disorder: No - Endocrine/Metabolic Hx Endocrine Disorders: No - Hematological/Oncological Hx Blood Disorders: No - Integumentary Hx Dermatological Disorder: Yes Hx Cellulitis: Yes (s/p arthroscopy right knee) - Musculoskeletal/Rheumatological Hx Musculoskeletal Disorders: Yes Hx Arthritis: Yes Hx Back Pain: Yes Hx Osteoarthritis: Yes Hx Rheumatoid Arthritis: Yes - Gastrointestinal Hx Gastrointestinal Disorders: No - Genitourinary/Gynecological Hx Genitourinary Disorders: No - Psychiatric Hx Psychophysiologic Disorder: No Hx Substance Use: No - Surgical History Hx Appendectomy: Yes Hx Cholecystectomy: Yes Hx Orthopedic Surgery: Yes Other/Comment: upper spine surgery jul 2014, lumbar surgery - Anesthesia Hx Anesthesia: Yes Hx Anesthesia Reactions: No Hx Malignant Hyperthermia: No - Suicidal Assessment Feels Threatened In Home Enviroment: No Family/Social History - Physician Review Nursing Documentation Reviewed: Yes Family/Social History: No Known Family HX Smoking Status: Never Smoked Hx Alcohol Use: No Hx Substance Use: No Hx Substance Use Treatment: No Allergies/Home Meds Allergies/Adverse Reactions: Allergies Penicillins Adverse Reaction (Verified 05/30/17 05:19) URTICARIA Home Medications: Home Meds Medication Instructions Recorded Confirmed Gabapentin [Neurontin] 1,800 mg PO HS 05/05/17 05/30/17 Lidocaine 4% [Lidocaine 4% 50 ml 1 applic EXT PRN PRN 05/05/17 05/30/17 Topical (or)] Certolizumab Pegol [Cimzia] 200 mg SC Q2W 05/30/17 05/30/17 Isosorbide Dinitrate [Isordil] 1 tab PO DAILY 05/30/17 Review of Systems - Physician Review All systems were reviewed & negative as marked: Yes - Review of Systems Constitutional: Normal. absent: Fatigue, Fevers Respiratory: Normal. absent: SOB, Cough, Sputum Cardiovascular: Normal. absent: Chest Pain, Palpitations Musculoskeletal: Other (b/l lower extremity pain (R>L) ) Neurological: Normal. absent: Headache, Dizziness Physical Exam - Systems Exam Head: Present: Atraumatic, Normocephalic Pupils: Present: PERRL Conjunctiva: Present: Normal Mouth: Present: Moist Mucous Membranes Respiratory/Chest: Present: Clear to Auscultation, Good Air Exchange. No: Respiratory Distress, Accessory Muscle Use Cardiovascular: Present: Regular Rate and Rhythm, Normal S1, S2. No: Murmurs Abdomen: Present: Normal Bowel Sounds. No: Tenderness, Distention, Peritoneal Signs Upper Extremity: Present: Normal Inspection. No: Cyanosis, Edema Lower Extremity: Present: Normal Inspection, NORMAL PULSES, Normal ROM, Neurovascularly Intact. No: Edema, CALF TENDERNESS, Swelling, Erythema, Deformity, Temperature Abnormalties Neurological: Present: GCS=15, CN II-XII Intact, Speech Normal, Motor Func Grossly Intact, Normal Sensory Function Skin: Present: Warm, Dry, Normal Color. No: Rashes Psychiatric: Present: Alert, Oriented x 3, Normal Insight, Normal Concentration Medical Decision Making ED Course and Treatment: 05/30/17 05:38 Impression: A 52 year old female who presents to the emergency department complaining of bilateral lower extremity pain. Plan: -- Toradol -- Reassess and disposition Progress Notes: - Scribe Statement The provider has reviewed the documentation as recorded by the Frank Bender Provider Attestation: All medical record entries made by the Scribe were at my direction and personally dictated by me. I have reviewed the chart and agree that the record accurately reflects my personal performance of the history, physical exam, medical decision making, and the department course for this patient. I have also personally directed, reviewed, and agree with the discharge instructions and disposition. Disposition/Present on Arrival - Present on Arrival History of DVT/PE: No History of Uncontrolled Diabetes: No Urinary Catheter: No History of Decub. Ulcer: No History Surgical Site Infection Following: None - Disposition Forms: [employer] (Sri Lankan)
[2017-05-30] MEDS ORDERED: HYDROmorphone 1 mg/ml ISec SC STA (06:50)
[2017-05-30 07:32] VITALS: RESP 17
[2017-05-30 07:37] VITALS: TEMP 98.1
--- NOTE | 2017-05-30 09:11 | ED PDOC ---
Physical Exam Vital Signs Temp Pulse Resp BP Pulse Ox 05/30/17 07:36 98.1 F 05/30/17 07:31 77 17 119/63 93 L Medical Decision Making ED Course and Treatment: 05/30/17 07:00 Patient signed out to me by Dr. Hansen. 05/30/17 09:07 On reexamination, patient has strong distal pulses. Patient reports pain to her feet that has been chronic and has not changed in character as previous episode. No edema or cellulitis noted. No chest pain or shortness of breath. Patient report to have had a normal cardiac cath 2 months ago. Patient states that her pain has improved after Dilaudid. Will be discharged with Ultra which she states that she has had in the past. I have discussed risks and side effects with patient. Patient will be discharged and instructed to follow-up with PMD. - Medication Orders Current Medication Orders: Discontinued Medications Hydromorphone HCl (Dilaudid) 1 mg SC STAT STA Stop: 05/30/17 06:51 Last Admin: 05/30/17 07:15 Dose: 1 mg Ketorolac Tromethamine (Toradol) 30 mg IM ONCE ONE Stop: 05/30/17 05:34 Last Admin: 05/30/17 05:40 Dose: 30 mg - Scribe Statement The provider has reviewed the documentation as recorded by the Frank Werner Provider Scribe Attestation: All medical record entries made by the Scribe were at my direction and personally dictated by me. I have reviewed the chart and agree that the record accurately reflects my personal performance of the history, physical exam, medical decision making, and the department course for this patient. I have also personally directed, reviewed, and agree with the discharge instructions and disposition. Disposition/Present on Arrival - Present on Arrival Any Indicators Present on Arrival: No History of DVT/PE: No History of Uncontrolled Diabetes: No Urinary Catheter: No History of Decub. Ulcer: No History Surgical Site Infection Following: None - Disposition Have Diagnosis and Disposition been Completed?: Yes Diagnosis: Neuropathy Disposition: HOME/ ROUTINE Disposition Time: 10:30 Patient Plan: Discharge Condition: GOOD Discharge Instructions (ExitCare): Peripheral Neuropathy (ED) Additional Instructions: For any change in location or character of pain, any swelling, any redness, any numbness or weakness, any incontinence of urine or stool, any chest pain or shortness of breath, any lightheadedness or dizziness, any headaches, any persistent or worsening of symptoms, get rechecked. Follow-up with your physician and neurologist as directed. Prescriptions: traMADol [Ultram] 50 mg PO BID PRN #10 tab PRN Reason: Pain, Severe (8-10) Referrals: Registered Dental [facility] [Outside] - [place] up [place] [facility] [place] - Follow up with primary Ashley Silva MD [Staff Provider] - Follow up with primary Olena Tobin MD [Primary Care Provider] - Follow up with primary Forms: [employer] (Scottish)
[2017-05-30 10:10] VITALS: BP 135/75; PULSE 51; O2SAT 95
== END 2017-05-30 10:46 | disposition home or self-care (01) ==
LOC: ED 05:17
DX: G62.9 Polyneuropathy, unspecified (principal)
CPT/HCPCS: 96372; 99284; J1170; J1885

== ENCOUNTER 2017-06-03 22:53 | Emergency (ER) | payer OTHER ==
[2017-06-03 22:54] VITALS: BMI 41.5
[2017-06-03 23:19] VITALS: RESP 18; TEMP 99.1
--- NOTE | 2017-06-03 23:29 | ED PDOC ---
Arrival/HPI <Go Lambert - Last Filed: 06/03/17 23:43> - General Historian: Patient <Justo Mansfield - Last Filed: 06/04/17 00:52> - General Time Seen by Provider: 06/03/17 22:57 - History of Present Illness Narrative History of Present Illness (Text): 06/03/17 23:18 52 y/o female, pmh including UTI, penicillin allergy, c/o rt. thigh pain started tonight and seeing the vein is bulging. Pt. is able to walk, no limping , no skin discoloration, no rash, no night sweat, no other medical or psychological complaints. (Justo Mansfield) Past Medical History - Provider Review Nursing Documentation Reviewed: Yes - Infectious Disease Hx of Infectious Diseases: None - Tetanus Immunization Tetanus Immunization: Up to Date (tetanus 2 yrs ago) - Past Medical History Past Medical History: No Previous - Cardiac Hx Cardiac Disorders: Yes Hx Peripheral Edema: Yes Hx Peripheral Vascular Disease: Yes - Pulmonary Hx Respiratory Disorders: Yes Hx Bronchitis: Yes - Neurological Hx Neurological Disorder: Yes Hx Vertigo: Yes - HEENT Hx HEENT Disorder: No - Renal Hx Renal Disorder: No - Endocrine/Metabolic Hx Endocrine Disorders: No - Hematological/Oncological Hx Blood Disorders: No - Integumentary Hx Dermatological Disorder: Yes Hx Cellulitis: Yes (s/p arthroscopy right knee) - Musculoskeletal/Rheumatological Hx Musculoskeletal Disorders: Yes Hx Arthritis: Yes Hx Back Pain: Yes Hx Osteoarthritis: Yes Hx Rheumatoid Arthritis: Yes - Gastrointestinal Hx Gastrointestinal Disorders: No - Genitourinary/Gynecological Hx Genitourinary Disorders: No - Psychiatric Hx Psychophysiologic Disorder: No Hx Substance Use: No - Surgical History Hx Appendectomy: Yes Hx Cholecystectomy: Yes Hx Orthopedic Surgery: Yes Other/Comment: upper spine surgery jul 2014, lumbar surgery - Anesthesia Hx Anesthesia: Yes Hx Anesthesia Reactions: No Hx Malignant Hyperthermia: No - Suicidal Assessment Feels Threatened In Home Enviroment: No <Justo Mansfield - Last Filed: 06/04/17 00:52> Family/Social History - Physician Review Nursing Documentation Reviewed: Yes Family/Social History: Unknown Family HX Smoking Status: Never Smoked Hx Alcohol Use: No Hx Substance Use: No Hx Substance Use Treatment: No <Justo Mansfield - Last Filed: 06/04/17 00:52> Allergies/Home Meds <Go Lambert - Last Filed: 06/03/17 23:43> <Justo Mansfield - Last Filed: 06/04/17 00:52> Allergies/Adverse Reactions: Allergies Penicillins Adverse Reaction (Verified 05/30/17 05:19) URTICARIA Home Medications: Home Meds Medication Instructions Recorded Confirmed Gabapentin [Neurontin] 1,800 mg PO HS 05/05/17 06/03/17 Lidocaine 4% [Lidocaine 4% 50 ml 1 applic EXT PRN PRN 05/05/17 06/03/17 Topical (or)] Certolizumab Pegol [Cimzia] 200 mg SC Q2W 05/30/17 06/03/17 Isosorbide Dinitrate [Isordil] 1 tab PO DAILY 05/30/17 06/03/17 Review of Systems - Review of Systems Constitutional: absent: Fatigue, Fevers Eyes: absent: Vision Changes ENT: absent: Hearing Changes Respiratory: absent: SOB, Cough Cardiovascular: absent: Chest Pain Gastrointestinal: absent: Abdominal Pain, Nausea, Vomiting Musculoskeletal: Myalgias Skin: absent: Rash, Pruritis Psychiatric: absent: Anxiety, Depression, Suicidal Ideation <Justo Mansfield - Last Filed: 06/04/17 00:52> Physical Exam Vital Signs Reviewed: Yes Temperature: Afebrile Blood Pressure: Normal Pulse: Regular Respiratory Rate: Normal Appearance: Positive for: Well-Appearing, Non-Toxic, Comfortable Pain Distress: Mild Mental Status: Positive for: Alert and Oriented X 3 - Systems Exam Head: Present: Atraumatic, Normocephalic Pupils: Present: PERRL Extroacular Muscles: Present: EOMI Conjunctiva: Present: Normal Mouth: Present: Moist Mucous Membranes Neck: Present: Normal Range of Motion Respiratory/Chest: Present: Clear to Auscultation, Good Air Exchange. No: Respiratory Distress, Accessory Muscle Use Cardiovascular: Present: Regular Rate and Rhythm, Normal S1, S2. No: Murmurs Abdomen: Present: Normal Bowel Sounds. No: Tenderness, Distention, Peritoneal Signs, Rebound, Guarding Back: Present: Normal Inspection Upper Extremity: Present: Normal Inspection. No: Cyanosis, Edema Lower Extremity: Present: Normal Inspection, Normal ROM, Neurovascularly Intact , Capillary Refill < 2 s. No: Edema, Tenderness, Swelling, Deformity Neurological: Present: GCS=15, Speech Normal, Motor Func Grossly Intact, Gait Normal, Memory Normal Skin: Present: Warm, Dry, Normal Color. No: Rashes Psychiatric: Present: Alert, Oriented x 3, Normal Insight, Normal Concentration <Justo Mansfield - Last Filed: 06/04/17 00:52> Vital Signs Temp Pulse Resp BP Pulse Ox 06/03/17 23:15 99.1 F 67 18 125/70 96 Medical Decision Making <Go Lambert - Last Filed: 06/03/17 23:43> - RAD Interpretation Client Specialist: Radiologist <Justo Mansfield - Last Filed: 06/04/17 00:52> ED Course and Treatment: 06/03/17 23:33 -RLE Venuous Doppler -Pt. refused pain med 06/04/17 00:14 -Pt. request pain med now, toradol IM ordered 06/04/17 00:47 -RLE Venuous Doppler: as pre preliminary report, there is no acute DVT -Discharge home with naproxen as needed for pain, continue compression stocking , elevation, decrease salt intake, avoid excessive walking, follow up with your own pmd and sterile instrument technician within 2 days, return to the ER for any new or worsening sign or symptoms. (Justo Mansfield) - RAD Interpretation Radiology Orders: 06/03/17 23:29 DUPLEX LOWER EXTRM VEIN RIGHT [US] Stat 06/03/17 23:29 DUPLEX LOWER EXTRM VEIN RIGHT [US] Stat RLE Venuous Doppler: as pre preliminary report, there is no acute DVT (Justo Mansfield) - Medication Orders Current Medication Orders: Discontinued Medications Ketorolac Tromethamine (Toradol) 60 mg IM STAT STA Stop: 06/04/17 00:14 - PA / EYEGLASS LENS GRINDER / Resident Statement DOROTHY has reviewed & agrees with the documentation as recorded. <Go Lambert - Last Filed: 06/03/17 23:43> - PA / EYEGLASS LENS GRINDER / Resident Statement DOROTHY has reviewed & agrees with the documentation as recorded. <Justo Mansfield - Last Filed: 06/04/17 00:52> Disposition/Present on Arrival <Go Lambert - Last Filed: 06/03/17 23:43> - Present on Arrival Any Indicators Present on Arrival: No History of DVT/PE: No History of Uncontrolled Diabetes: No Urinary Catheter: No History of Decub. Ulcer: No History Surgical Site Infection Following: None - Disposition Have Diagnosis and Disposition been Completed?: Yes Disposition Time: 00:49 Patient Plan: Discharge <Justo Mansfield - Last Filed: 06/04/17 00:52> - Disposition Diagnosis: Varicose vein of leg Disposition: HOME/ ROUTINE Condition: GOOD Additional Instructions: -Discharge home with naproxen as needed for pain, continue compression stocking , elevation, decrease salt intake, avoid excessive walking, follow up with your own pmd and sterile instrument technician within 2 days, return to the ER for any new or worsening sign or symptoms. Prescriptions: Naproxen 500 mg PO BID PRN #20 tab PRN Reason: Other Referrals: [facility] [place] [facility] [place] - Follow up with primary Blake Obrien MD [Staff Provider] - Follow up with primary Forms: WORK NOTE
[2017-06-04 00:58] VITALS: BP 128/72; PULSE 65; O2SAT 99
--- NOTE | 2017-06-05 08:39 | US ---
PROCEDURE: Right lower extremity venous US HISTORY: Leg pain and swelling. Evaluate for DVT. PHYSICIAN(S): Haroon Briceno M.D. TECHNIQUE: Duplex sonography and color-flow Doppler with graded compression were used to evaluate the deep venous system of the right lower extremity. The exam is limited by body habitus. FINDINGS: The visualized deep venous system of the right lower extremity is sonographically normal and compressible. Normal waveforms and augmentation are seen. There is no sonographic evidence for deep venous thrombosis in the visualized segments of the right lower extremity. IMPRESSION: 1. No sonographic evidence for deep venous thrombosis in the visualized segments of the right lower extremity.
== END 2017-06-04 01:00 | disposition home or self-care (01) ==
LOC: ED 22:53
DX: I83.91 Asymptomatic varicose veins of right lower extremity (principal)
CPT/HCPCS: 93971; 96372; 99284; J1885

== ENCOUNTER 2017-11-20 09:53 | Emergency (ER) | payer OTHER ==
[2017-11-20 09:54] VITALS: BMI 41.5
[2017-11-20 10:50] VITALS: BP 126/74; PULSE 78; RESP 18; TEMP 98.5; O2SAT 96
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
== END 2017-11-20 11:59 | disposition home or self-care (01) ==
LOC: ED 09:53
DX: M54.5 Low back pain (principal); M54.2 Cervicalgia; G89.29 Other chronic pain
CPT/HCPCS: 96372; 99282; J1885

== ENCOUNTER 2017-12-26 06:04 | Emergency (ER) | payer OTHER ==
[2017-12-26 06:05] VITALS: BMI 41.5
[2017-12-26 06:43] VITALS: TEMP 98.6
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
[2017-12-26 09:53] VITALS: O2SAT 99
[2017-12-26 09:55] VITALS: BP 110/66; PULSE 76; RESP 18
== END 2017-12-26 09:10 | disposition home or self-care (01) ==
LOC: ED 06:04
DX: G89.29 Other chronic pain (principal); M54.5 Low back pain; M06.9 Rheumatoid arthritis, unspecified
CPT/HCPCS: 96372; 99284; J1885

== ENCOUNTER 2018-05-31 08:35 | Emergency (ER) | payer OTHER ==
[2018-05-31 09:00] VITALS: BMI 41.8
[2018-05-31 09:06] VITALS: RESP 18; TEMP 98
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
[2018-05-31 10:56] VITALS: BP 109/70; PULSE 74; O2SAT 98
== END 2018-05-31 10:56 | disposition home or self-care (01) ==
LOC: ED 08:35
DX: G89.29 Other chronic pain (principal); M54.5 Low back pain; I50.9 Heart failure, unspecified; M06.9 Rheumatoid arthritis, unspecified; I10 Essential (primary) hypertension
CPT/HCPCS: 96372; 99284; J1885

== ENCOUNTER 2018-09-07 20:34 | Emergency (ER) | payer OTHER ==
[2018-09-07 20:52] VITALS: BMI 44.6
--- NOTE | 2018-09-07 21:17 | ED PDOC ---
Arrival/HPI - General Chief Complaint: Pain, Chronic Time Seen by Provider: 09/07/18 20:40 Historian: Patient - History of Present Illness Narrative History of Present Illness (Text): 53 y/o female with PMH of HTN, RA, chronic bilateral peripheral neuropathy in upper/lower extremities s/p spinal fusion surgery presents to the ED with an acute exacerbation of her chronic pain. Described as bilateral hand pain and burning sensation, making it difficult to fully open her hands. Patient states this happens occasionally, and it is usually relieved by a shot of toradol. Patient follows with her neurologist Dr. Bledsoe. Compliant with medications. Denies fevers, chills, headache, dizziness, vision changes, chest pain, SOB, abdominal pain, N/V, or any other associated complaints. Past Medical History - Provider Review Nursing Documentation Reviewed: Yes - Infectious Disease Hx of Infectious Diseases: None - Tetanus Immunization Tetanus Immunization: Up to Date (tetanus 2 yrs ago) - Past Medical History Past Medical History: No Previous - Cardiac Hx Cardiac Disorders: Yes Hx Congestive Heart Failure: Yes Hx Hypertension: Yes Hx Peripheral Edema: Yes Hx Peripheral Vascular Disease: Yes - Pulmonary Hx Respiratory Disorders: Yes Hx Bronchitis: Yes - Neurological Hx Neurological Disorder: Yes Hx Vertigo: Yes - HEENT Hx HEENT Disorder: No - Renal Hx Renal Disorder: No - Endocrine/Metabolic Hx Endocrine Disorders: No - Hematological/Oncological Hx Blood Disorders: No - Integumentary Hx Dermatological Disorder: Yes Hx Cellulitis: Yes (s/p arthroscopy right knee) - Musculoskeletal/Rheumatological Hx Musculoskeletal Disorders: Yes Hx Arthritis: Yes Hx Back Pain: Yes Hx Osteoarthritis: Yes Hx Rheumatoid Arthritis: Yes - Gastrointestinal Hx Gastrointestinal Disorders: No - Genitourinary/Gynecological Hx Genitourinary Disorders: No - Psychiatric Hx Psychophysiologic Disorder: No Hx Substance Use: No - Surgical History Hx Appendectomy: Yes Hx Cholecystectomy: Yes Hx Orthopedic Surgery: Yes Other/Comment: upper spine surgery jul 2014, lumbar surgery - Anesthesia Hx Anesthesia: Yes Hx Anesthesia Reactions: No Hx Malignant Hyperthermia: No - Suicidal Assessment Feels Threatened In Home Enviroment: No Family/Social History - Physician Review Nursing Documentation Reviewed: Yes Family/Social History: No Known Family HX Smoking Status: Never Smoked Hx Alcohol Use: No Hx Substance Use: No Hx Substance Use Treatment: No Allergies/Home Meds Allergies/Adverse Reactions: Allergies Penicillins Adverse Reaction (Verified 09/07/18 20:52) URTICARIA Home Medications: Home Meds Medication Instructions Recorded Confirmed Gabapentin [Neurontin] 1,800 mg PO HS 05/05/17 05/31/18 Certolizumab Pegol [Cimzia] 200 mg SC Q2W 05/30/17 05/31/18 RX: Isosorbide Dinitrate [Isordil] 1 tab PO DAILY 05/30/17 05/31/18 Carvedilol [Coreg] 12.5 mg PO BID 05/31/18 05/31/18 Cyclobenzaprine [Cyclobenzaprine 10 mg PO PRN PRN 05/31/18 05/31/18 HCl] Furosemide [Lasix] 40 mg PO TID 05/31/18 05/31/18 Review of Systems - Physician Review All systems were reviewed & negative as marked: Yes - Review of Systems Constitutional: Normal. absent: Fevers Eyes: Normal. absent: Vision Changes ENT: Normal. absent: Sinus Congestion Respiratory: Normal. absent: SOB, Cough Cardiovascular: Normal. absent: Chest Pain, Palpitations, Syncope Gastrointestinal: Normal. absent: Abdominal Pain, Nausea, Vomiting Genitourinary Female: Normal. absent: Dysuria, Frequency Musculoskeletal: Back Pain (chronic), Neck Pain (chronic), Other (bilateral hand and foot neuropathic pain) Skin: Normal. absent: Rash Neurological: Normal Endocrine: Normal Hemo/Lymphatic: Normal Psychiatric: Normal Physical Exam Vital Signs Reviewed: Yes Temperature: Afebrile Blood Pressure: Normal Pulse: Regular Respiratory Rate: Normal Appearance: Positive for: Well-Appearing, Non-Toxic, Comfortable Pain Distress: None Mental Status: Positive for: Alert and Oriented X 3 - Systems Exam Head: Present: Atraumatic, Normocephalic Pupils: Present: PERRL Extroacular Muscles: Present: EOMI Conjunctiva: Present: Normal Mouth: Present: Moist Mucous Membranes Neck: Present: Normal Range of Motion Respiratory/Chest: Present: Clear to Auscultation, Good Air Exchange. No: Respiratory Distress, Accessory Muscle Use Cardiovascular: Present: Regular Rate and Rhythm, Normal S1, S2, Peripheal Pulses Present Abdomen: Present: Normal Bowel Sounds. No: Tenderness, Distention, Peritoneal Signs Back: Present: Normal Inspection. No: Midline Tenderness Upper Extremity: Present: Normal Inspection, NORMAL PULSES, Tenderness (bilateral hands), Neurovascularly Intact, Capillary Refill < 2s, Other (hypersensitivity to touch bilateral hands). No: Cyanosis, Edema, Normal ROM (secondary to pain), Swelling, Erythema, Temperature Abnormalties, Deformity Lower Extremity: Present: Normal Inspection, NORMAL PULSES, Normal ROM, Capillary Refill < 2 s, Other (Pulses 2/2 bilaterally; chronic decreased sensation bilateral feet and ankles). No: Edema, CALF TENDERNESS, Anyi's Sign, Tenderness, Swelling, Erythema, Temperature Abnormalties Neurological: Present: GCS=15, CN II-XII Intact, Speech Normal, Motor Func Grossly Intact, Gait Normal Skin: Present: Warm, Dry, Normal Color. No: Rashes, Hot Lymphatic: No: Cervical Adenopathy Psychiatric: Present: Alert, Oriented x 3, Normal Insight, Normal Concentration, Normal Affect, Normal Mood Medical Decision Making ED Course and Treatment: Initial Plan: * Toradol IM * Reassess and Disposition Patient reports significant decrease in pain after Toradol, increased ROM of bilateral hands. Requesting discharge home, states she will followup with her PMD and neurologist. Advised to continue home medications as prescribed and return for new/worsening symptoms. Diagnostic testing results and plan of care discussed with patient, and strict instructions given regarding prescriptions, importance of follow up, and signs to return to Emergency Department, to include worsening pain, signs of infection, fever, or any other new/worsening symptoms. Patient verbalizes understanding of discussion. Patient A&Ox3, ambulating with steady gait, stable for discharge home. Disposition/Present on Arrival - Present on Arrival Any Indicators Present on Arrival: No History of DVT/PE: No History of Uncontrolled Diabetes: No Urinary Catheter: No History Surgical Site Infection Following: None - Disposition Have Diagnosis and Disposition been Completed?: Yes Diagnosis: Chronic pain, Neuropathy Disposition: HOME/ ROUTINE Disposition Time: 22:40 Patient Plan: Discharge Condition: IMPROVED Discharge Instructions (ExitCare): Peripheral Neuropathy, Chronic Pain (DC) Additional Instructions: Continue home medications Followup with your PMD within 2 days Followup with pain management within 2 days Followup with neurologist within 2 days Return to ER with any new/worsening symptoms Referrals: [facility] [Outside] - Follow up with primary Gael Briscoe MD [Staff Provider] - Follow up with primary Brianna Melendez MD [Medical Doctor] - Follow up with primary Forms: [employer] ([place]), WORK NOTE
[2018-09-08 00:18] VITALS: BP 128/74; PULSE 79; RESP 18; TEMP 98.2; O2SAT 98
== END 2018-09-07 22:45 | disposition home or self-care (01) ==
LOC: ED 20:34
DX: G89.29 Other chronic pain (principal); G62.9 Polyneuropathy, unspecified; I50.9 Heart failure, unspecified; I10 Essential (primary) hypertension; M06.9 Rheumatoid arthritis, unspecified
CPT/HCPCS: 96372; 99284; J1885

== ENCOUNTER 2018-12-02 12:45 | Emergency (ER) | payer OTHER | END 2018-12-02 17:27 | disposition home or self-care (01) | LOC: ED 12:45 ==

== ENCOUNTER 2018-12-12 07:46 | Emergency (ER) | payer OTHER ==
[2018-12-12 07:55] VITALS: BMI 43.5
--- NOTE | 2018-12-12 07:59 | ED PDOC ---
Arrival/HPI - General Time Seen by Provider: 12/12/18 07:56 Historian: Patient - History of Present Illness Narrative History of Present Illness (Text): 12/12/18 07:58 This is a 53-year-old female, with past medical history of HTN, CHF, Rheumatoid Arthritis, Chronic Bilateral Peripheral Neuropathy in upper/lower extremities s/p spinal fusion surgery, presents to emergency department complaining of ____ Past Medical History - Infectious Disease Hx of Infectious Diseases: None - Tetanus Immunization Tetanus Immunization: Up to Date (tetanus 2 yrs ago) - Past Medical History Past Medical History: No Previous - Cardiac Hx Cardiac Disorders: Yes Hx Congestive Heart Failure: Yes Hx Hypertension: Yes Hx Peripheral Edema: Yes Hx Peripheral Vascular Disease: Yes - Pulmonary Hx Respiratory Disorders: Yes Hx Bronchitis: Yes - Neurological Hx Neurological Disorder: Yes Hx Vertigo: Yes - HEENT Hx HEENT Disorder: No - Renal Hx Renal Disorder: No - Endocrine/Metabolic Hx Endocrine Disorders: No - Hematological/Oncological Hx Blood Disorders: No - Integumentary Hx Dermatological Disorder: Yes Hx Cellulitis: Yes (s/p arthroscopy right knee) - Musculoskeletal/Rheumatological Hx Musculoskeletal Disorders: Yes Hx Arthritis: Yes Hx Back Pain: Yes Hx Osteoarthritis: Yes Hx Rheumatoid Arthritis: Yes - Gastrointestinal Hx Gastrointestinal Disorders: No - Genitourinary/Gynecological Hx Genitourinary Disorders: No - Psychiatric Hx Psychophysiologic Disorder: No Hx Substance Use: No - Surgical History Hx Appendectomy: Yes Hx Cholecystectomy: Yes Hx Orthopedic Surgery: Yes Other/Comment: upper spine surgery jul 2014, lumbar surgery - Anesthesia Hx Anesthesia: Yes Hx Anesthesia Reactions: No Hx Malignant Hyperthermia: No - Suicidal Assessment Feels Threatened In Home Enviroment: No Family/Social History Smoking Status: Never Smoked Hx Alcohol Use: No Hx Substance Use: No Hx Substance Use Treatment: No Allergies/Home Meds Allergies/Adverse Reactions: Allergies Penicillins Adverse Reaction (Verified 12/02/18 12:58) URTICARIA Home Medications: Home Meds Medication Instructions Recorded Confirmed Isosorbide Dinitrate [Isordil] 1 tab PO DAILY 05/30/17 12/02/18 Carvedilol [Coreg] 12.5 mg PO BID 05/31/18 12/02/18 Furosemide [Lasix] 40 mg PO TID 05/31/18 12/02/18 Potassium Chloride [K-Dur 20 mEq 20 meq PO BID 12/02/18 12/02/18 ER Tab] Pregabalin [Lyrica] 100 mg PO BID 12/02/18 12/02/18 hydrOXYzine HCl [Atarax] 25 mg PO DAILY 12/02/18 12/02/18 metOLazone [Zaroxolyn] 5 mg PO DAILY 12/02/18 12/02/18 Disposition/Present on Arrival - Present on Arrival History of DVT/PE: No History of Uncontrolled Diabetes: No Urinary Catheter: No History Surgical Site Infection Following: None - Disposition
--- NOTE | 2018-12-12 08:11 | ED PDOC ---
Arrival/HPI - History of Present Illness Narrative History of Present Illness (Text): 12/12/18 08:08 53 year old female, with past medical history of HTN, CHF, RA, chronic bilateral peripheral neuropathy in upper/lower extremities s/p spinal fusion surgery, presents to emergency department complaining bilateral hand and bilateral leg pain. Patient describes the pain as "neuropathy" and says it got worse overnight. Patient says she usually takes toradol PRN and lyrica 200mg PO HS for pain. Severity Level: 10 <Brittany Reid - Last Filed: 12/12/18 09:02> - General Historian: Patient - History of Present Illness Time/Duration: > month Symptom Onset: Gradual Symptom Course: Unchanged Activities at Onset: Light Context: Home <Kim Hernadnez - Last Filed: 12/12/18 09:38> - General Time Seen by Provider: 12/12/18 07:56 Past Medical History - Provider Review Nursing Documentation Reviewed: Yes - Infectious Disease Hx of Infectious Diseases: None - Tetanus Immunization Tetanus Immunization: Up to Date (tetanus 2 yrs ago) - Reproductive Menopause: Yes - Past Medical History Past Medical History: No Previous - Cardiac Hx Cardiac Disorders: Yes Hx Congestive Heart Failure: Yes Hx Hypertension: Yes Hx Peripheral Edema: Yes Hx Peripheral Vascular Disease: Yes - Pulmonary Hx Respiratory Disorders: Yes Hx Bronchitis: Yes - Neurological Hx Neurological Disorder: Yes Hx Vertigo: Yes - HEENT Hx HEENT Disorder: No - Renal Hx Renal Disorder: No - Endocrine/Metabolic Hx Endocrine Disorders: No - Hematological/Oncological Hx Blood Disorders: No - Integumentary Hx Dermatological Disorder: Yes Hx Cellulitis: Yes (s/p arthroscopy right knee) - Musculoskeletal/Rheumatological Hx Musculoskeletal Disorders: Yes Hx Arthritis: Yes Hx Back Pain: Yes Hx Osteoarthritis: Yes Hx Rheumatoid Arthritis: Yes - Gastrointestinal Hx Gastrointestinal Disorders: No - Genitourinary/Gynecological Hx Genitourinary Disorders: No - Psychiatric Hx Psychophysiologic Disorder: No Hx Substance Use: No - Surgical History Hx Appendectomy: Yes Hx Cholecystectomy: Yes Hx Orthopedic Surgery: Yes Other/Comment: upper spine surgery jul 2014, lumbar surgery - Anesthesia Hx Anesthesia: Yes Hx Anesthesia Reactions: No Hx Malignant Hyperthermia: No - Suicidal Assessment Feels Threatened In Home Enviroment: No <Brittany Reid - Last Filed: 12/12/18 09:02> Family/Social History - Physician Review Nursing Documentation Reviewed: Yes Family/Social History: Neoplasm/Cancer Smoking Status: Never Smoked Hx Alcohol Use: No Hx Substance Use: No Hx Substance Use Treatment: No <Brittany Reid - Last Filed: 12/12/18 09:02> Allergies/Home Meds <Brittany Reid - Last Filed: 12/12/18 09:02> <StanleylanialexandriaKim Rosemary - Last Filed: 12/12/18 09:38> Allergies/Adverse Reactions: Allergies Penicillins Adverse Reaction (Verified 12/02/18 12:58) URTICARIA Home Medications: Home Meds Medication Instructions Recorded Confirmed Isosorbide Dinitrate [Isordil] 1 tab PO DAILY 05/30/17 12/02/18 Carvedilol [Coreg] 12.5 mg PO BID 05/31/18 12/02/18 Furosemide [Lasix] 40 mg PO TID 05/31/18 12/02/18 Potassium Chloride [K-Dur 20 mEq 20 meq PO BID 12/02/18 12/02/18 ER Tab] Pregabalin [Lyrica] 100 mg PO BID 12/02/18 12/02/18 hydrOXYzine HCl [Atarax] 25 mg PO DAILY 12/02/18 12/02/18 metOLazone [Zaroxolyn] 5 mg PO DAILY 12/02/18 12/02/18 Review of Systems - Patients Enrolled in [employer] [X]: A conversation was conducted with the primary medical doctor. - Review of Systems Constitutional: absent: Fatigue, Weight Change Eyes: absent: Vision Changes ENT: absent: Hearing Changes Respiratory: absent: SOB, Wheezing Cardiovascular: absent: Chest Pain, Palpitations, Edema Gastrointestinal: absent: Abdominal Pain, Nausea, Vomiting Genitourinary Female: absent: Dysuria Musculoskeletal: Arthralgias (bilateral hands ) Skin: absent: Rash, Pruritis, Skin Lesions, Laceration, Cellulitis Neurological: Normal Endocrine: absent: Diaphoresis Psychiatric: absent: Anxiety <Brittany Reid - Last Filed: 12/12/18 09:02> Physical Exam Vital Signs Temp Pulse Resp BP Pulse Ox 12/12/18 07:47 97.5 F L 59 L 19 159/71 H 95 Temperature: Afebrile Blood Pressure: Hypertensive Pulse: Regular Respiratory Rate: Normal Appearance: Positive for: Non-Toxic, Uncomfortable Pain Distress: Moderate Mental Status: Positive for: Alert and Oriented X 3 - Systems Exam Head: Present: Atraumatic, Normocephalic Pupils: Present: PERRL Extroacular Muscles: Present: EOMI Conjunctiva: Present: Normal Mouth: Present: Moist Mucous Membranes Neck: Present: Normal Range of Motion. No: Meningeal Signs Cardiovascular: Present: Regular Rate and Rhythm, Normal S1, S2. No: Murmurs Abdomen: Present: Normal Bowel Sounds. No: Tenderness, Distention, Peritoneal Signs, Rebound Upper Extremity: Present: Normal Inspection, Normal ROM, NORMAL PULSES, Neurovascularly Intact, Capillary Refill < 2s. No: Cyanosis, Temperature Abnormalties Lower Extremity: Present: Normal Inspection, Edema (+1 pitting edema bilaterally ), CALF TENDERNESS, NORMAL PULSES, Tenderness, Neurovascularly Intact, Capillary Refill < 2 s. No: Cyanosis Neurological: Present: GCS=15, CN II-XII Intact, Speech Normal Skin: Present: Warm, Dry, Normal Color. No: Rashes Psychiatric: Present: Alert, Oriented x 3, Normal Insight, Normal Concentration <Brittany Reid - Last Filed: 12/12/18 09:02> Vital Signs Reviewed: Yes Vital Signs Temp Pulse Resp BP Pulse Ox 12/12/18 07:47 97.5 F L 59 L 19 159/71 H 95 <Kim Hernandez - Last Filed: 12/12/18 09:38> Medical Decision Making ED Course and Treatment: 12/12/18 08:15 53 year old female, with past medical history of HTN, CHF, RA, chronic bilateral peripheral neuropathy in upper/lower extremities s/p spinal fusion surgery, presents to emergency department complaining bilateral hand and bilateral leg pain. PLAN: - Toradol 30mg IM x1 12/12/18 09:02 Patient's pain improved. Patient is hemodynamically stable and medically optimized for discharge. <Brittany Reid - Last Filed: 12/12/18 09:02> ED Course and Treatment: 12/12/18 09:37 Patient Seen with Resident: In agreement with resident note which contains more details about the patient. Patient seen and evaluated with resident. Came up with plan and treatment together. Impression: 53 year old female who presents to the emergency department complaining of bilateral hand and bilateral leg pain. - Medication Orders Current Medication Orders: Discontinued Medications Ketorolac Tromethamine (Toradol) 30 mg IM STAT STA Stop: 12/12/18 08:11 Last Admin: 12/12/18 08:23 Dose: 30 mg MAR Pain Assessment Document 12/12/18 08:23 CD (Rec: 12/12/18 08:24 CD [facility] [place]-[id number]) Pain Reassessment Is this a pain reassessment? No Sleep Is patient sleeping during reassessment? No Presence of Pain Presence of Pain Yes Pain Scale Used Protocol: PSCALES Pain Scale Used Numeric Location Left, Right or Bilateral Bilateral Pain Location Body Site Foot Description Intensity of Pain at present 10 Pain Behavior Withdrawal from Touch IM Administration Charges Document 12/12/18 08:23 CD (Rec: 12/12/18 08:24 CD [facility] [id number]) Injection Site MAR Injection Site Left Gluteus Ryan Charges for Administration # of IM Administrations 1 <Kim Hernandez - Last Filed: 12/12/18 09:38> - Scribe Statement The provider has reviewed the documentation as recorded by the Frank Leone Provider Scribe Attestation: All medical record entries made by the Scribe were at my direction and personally dictated by me. I have reviewed the chart and agree that the record accurately reflects my personal performance of the history, physical exam, medical decision making, and the department course for this patient. I have also personally directed, reviewed, and agree with the discharge instructions and disposition. <Kim Hernandez - Last Filed: 12/12/18 09:38> Disposition/Present on Arrival - Present on Arrival Any Indicators Present on Arrival: No History of DVT/PE: No History of Uncontrolled Diabetes: No Urinary Catheter: No History of Decub. Ulcer: No History Surgical Site Infection Following: None - Disposition Have Diagnosis and Disposition been Completed?: Yes Disposition Time: 09:04 Patient Plan: Discharge <Brittany Reid - Last Filed: 12/12/18 09:02> <Kim Hernandez - Last Filed: 12/12/18 09:38> - Disposition Diagnosis: Neuropathy, Rheumatoid arthritis Disposition: HOME/ ROUTINE Condition: GOOD Discharge Instructions (ExitCare): Rheumatoid Arthritis (DC), Diabetic Neuropathy (DC) Additional Instructions: Follow-up with your primary care physician within 3-5 days of being discharge from the emergency department If your symptoms return, go to your nearest emergency department immediately Forms: [employer] (H[place] Konger)
[2018-12-12 09:26] VITALS: BP 116/69; PULSE 66; RESP 16; TEMP 97.7; O2SAT 96
== END 2018-12-12 09:25 | disposition home or self-care (01) ==
LOC: ED 07:46
DX: G62.9 Polyneuropathy, unspecified (principal); M06.9 Rheumatoid arthritis, unspecified; I11.0 Hypertensive heart disease with heart failure; I50.9 Heart failure, unspecified
CPT/HCPCS: 96372; 99283; J1885

== ENCOUNTER 2019-01-02 18:50 | Emergency (ER) | payer OTHER ==
[2019-01-02 19:28] VITALS: BP 97/58; TEMP 97.4; BMI 42.7
[2019-01-02] MEDS ORDERED: Lidocaine 5% Patch TD ONE (19:56)
--- NOTE | 2019-01-02 20:45 | ED PDOC ---
Arrival/HPI - General Chief Complaint: Back Pain Historian: Patient - History of Present Illness Narrative History of Present Illness (Text): 01/02/19 20:39 53 year old female, with past medical history of HTN, CHF, RA, chronic bilateral peripheral neuropathy in upper/lower extremities s/p spinal fusion surgery, presents to emergency department complaining of lower back pain, this morning. Patient states she went to sit down when her back "locked up". Patient informs she takes flexeril at home for her chronic back pain, stating however, that it doesn't work when she injures it like this. Patient informs she loses the use of her legs when this happens, and is unable to walk. Patient denies any fevers, chills, headache, dizziness, chest pain, shortness of breath, cough, diaphoresis, abdominal pain, nausea, vomiting, diarrhea, or any other complaint. PCP: Specialist: Time/Duration: Prior to Arrival Symptom Onset: Sudden Symptom Course: Unchanged Quality: Aching Activities at Onset: Light Context: Sitting Past Medical History - Provider Review Nursing Documentation Reviewed: Yes - Infectious Disease Hx of Infectious Diseases: None - Tetanus Immunization Tetanus Immunization: Up to Date (tetanus 2 yrs ago) - Past Medical History Past Medical History: No Previous - Cardiac Hx Cardiac Disorders: Yes Hx Congestive Heart Failure: Yes Hx Hypertension: Yes Hx Peripheral Edema: Yes Hx Peripheral Vascular Disease: Yes - Pulmonary Hx Respiratory Disorders: Yes Hx Bronchitis: Yes - Neurological Hx Neurological Disorder: Yes Hx Vertigo: Yes - HEENT Hx HEENT Disorder: No - Renal Hx Renal Disorder: No - Endocrine/Metabolic Hx Endocrine Disorders: No - Hematological/Oncological Hx Blood Disorders: No - Integumentary Hx Dermatological Disorder: Yes Hx Cellulitis: Yes (s/p arthroscopy right knee) - Musculoskeletal/Rheumatological Hx Musculoskeletal Disorders: Yes Hx Arthritis: Yes Hx Back Pain: Yes Hx Osteoarthritis: Yes Hx Rheumatoid Arthritis: Yes - Gastrointestinal Hx Gastrointestinal Disorders: No - Genitourinary/Gynecological Hx Genitourinary Disorders: No - Psychiatric Hx Psychophysiologic Disorder: No Hx Substance Use: No - Surgical History Hx Appendectomy: Yes Hx Cholecystectomy: Yes Hx Orthopedic Surgery: Yes Other/Comment: upper spine surgery jul 2014, lumbar surgery - Anesthesia Hx Anesthesia: Yes Hx Anesthesia Reactions: No Hx Malignant Hyperthermia: No - Suicidal Assessment Feels Threatened In Home Enviroment: No Family/Social History - Physician Review Nursing Documentation Reviewed: Yes Family/Social History: No Known Family HX Smoking Status: Never Smoked Hx Alcohol Use: No Hx Substance Use: No Hx Substance Use Treatment: No Allergies/Home Meds Allergies/Adverse Reactions: Allergies Penicillins Adverse Reaction (Verified 01/02/19 19:27) URTICARIA Home Medications: Home Meds Medication Instructions Recorded Confirmed Isosorbide Dinitrate [Isordil] 1 tab PO DAILY 05/30/17 12/02/18 Carvedilol [Coreg] 12.5 mg PO BID 05/31/18 12/02/18 Furosemide [Lasix] 40 mg PO TID 05/31/18 12/02/18 Potassium Chloride [K-Dur 20 mEq 20 meq PO BID 12/02/18 12/02/18 ER Tab] Pregabalin [Lyrica] 100 mg PO BID 12/02/18 12/02/18 hydrOXYzine HCl [Atarax] 25 mg PO DAILY 12/02/18 12/02/18 metOLazone [Zaroxolyn] 5 mg PO DAILY 12/02/18 12/02/18 Review of Systems - Physician Review All systems were reviewed & negative as marked: Yes - Review of Systems Constitutional: absent: Fevers, Night Sweats Respiratory: absent: SOB, Cough Cardiovascular: absent: Chest Pain Gastrointestinal: absent: Abdominal Pain, Diarrhea, Nausea, Vomiting Neurological: absent: Headache, Dizziness Physical Exam Vital Signs Reviewed: Yes Vital Signs Temp Pulse Resp BP Pulse Ox 01/02/19 19:26 97.4 F L 64 16 97/58 L 95 Temperature: Afebrile Blood Pressure: Hypotensive Pulse: Regular Respiratory Rate: Normal Appearance: Positive for: Well-Appearing, Non-Toxic, Comfortable Pain Distress: None Mental Status: Positive for: Alert and Oriented X 3 - Systems Exam Head: Present: Atraumatic, Normocephalic Pupils: Present: PERRL Extroacular Muscles: Present: EOMI Conjunctiva: Present: Normal Mouth: Present: Moist Mucous Membranes Neck: Present: Normal Range of Motion Respiratory/Chest: Present: Clear to Auscultation, Good Air Exchange. No: Respiratory Distress, Accessory Muscle Use Cardiovascular: Present: Regular Rate and Rhythm, Normal S1, S2. No: Murmurs Abdomen: No: Tenderness, Distention, Peritoneal Signs Back: Present: Paraspinal Tenderness, Pain with Leg Raise Upper Extremity: Present: Normal Inspection. No: Cyanosis, Edema Lower Extremity: Present: Normal Inspection. No: Edema Neurological: Present: GCS=15, CN II-XII Intact, Speech Normal Skin: Present: Warm, Dry, Normal Color. No: Rashes Psychiatric: Present: Alert, Oriented x 3, Normal Insight, Normal Concentration Medical Decision Making ED Course and Treatment: 01/02/19 20:47 Impression: 53 year old female presents with lower back pain. Plan: -- Valium -- Toradol -- Lidoderm -- Reassess and disposition Prior Visits: Notes and results from previous visits were reviewed. Progress Notes: - Medication Orders Current Medication Orders: Discontinued Medications Diazepam (Valium) 5 mg PO ONCE ONE; Protocol Stop: 01/02/19 19:57 Ketorolac Tromethamine (Toradol) 60 mg IM STAT STA Stop: 01/02/19 19:57 Lidocaine (Lidoderm) 1 ea TD ONCE ONE Stop: 01/02/19 19:57 - Scribe Statement The provider has reviewed the documentation as recorded by the Scribe Haroon Garnett Provider Scribe Attestation: All medical record entries made by the Scribe were at my direction and personally dictated by me. I have reviewed the chart and agree that the record accurately reflects my personal performance of the history, physical exam, medical decision making, and the department course for this patient. I have also personally directed, reviewed, and agree with the discharge instructions and disposition. Disposition/Present on Arrival - Present on Arrival Any Indicators Present on Arrival: No History of DVT/PE: No History of Uncontrolled Diabetes: No Urinary Catheter: No History of Decub. Ulcer: No History Surgical Site Infection Following: None - Disposition Have Diagnosis and Disposition been Completed?: Yes Diagnosis: Back pain Disposition: HOME/ ROUTINE Disposition Time: 23:13 Patient Plan: Discharge Condition: IMPROVED Discharge Instructions (ExitCare): Upper Back Pain (DC) Print Language: OMANI Additional Instructions: All medical record entries made by the Scribe were at my direction and personall y dictated by me. I have reviewed the chart and agree that the record accurately reflects my personal performance of the history, physical exam, medical decision making, and the department course for this patient. I have also personally directed, reviewed, and agree with the discharge instructions and disposition. Please follow up with your PCP in 1 week Referrals: Brianna Melendez MD [Medical Doctor] - Follow up with primary [facility] [place] [Outside] - Follow up with primary Forms: [employer] ([place] Leonean)
[2019-01-02 23:36] VITALS: PULSE 69; RESP 18; O2SAT 98
== END 2019-01-02 23:34 | disposition home or self-care (01) ==
LOC: ED 18:50
DX: M54.5 Low back pain (principal); I50.9 Heart failure, unspecified; M06.9 Rheumatoid arthritis, unspecified; I10 Essential (primary) hypertension; G62.9 Polyneuropathy, unspecified
CPT/HCPCS: 96372; 99283; J1885

== ENCOUNTER 2019-01-12 19:01 | Emergency (ER) | payer OTHER ==
[2019-01-12 19:06] VITALS: BMI 41.5
[2019-01-12 19:10] VITALS: BP 149/84; PULSE 67; RESP 18; TEMP 97.7; O2SAT 96
--- NOTE | 2019-01-12 19:25 | ED PDOC ---
Arrival/HPI <FaustoGo - Last Filed: 01/12/19 20:44> - General Historian: Patient - History of Present Illness Narrative History of Present Illness (Text): 01/12/19 19:17 53 y/o female, pmh including htn/chf/RA/OA/neuropathy with chronic RA joints of both hand and chronically limited range of movement of the bilateral hand, allergic to penicillin, post menopausal, c/o lt. hand pain started today. Pt. stated that she has chronic bilateral hand pain, woke up with lt. hand pain this morning, chronically bilateral hand pain and limited ROM due to the RA as per patient, no skin discoloration, no other medical or psychological complaints. <Justo Mansfield - Last Filed: 01/12/19 21:46> - General Chief Complaint: Finger,Hand,&Wrist Past Medical History - Provider Review Nursing Documentation Reviewed: Yes - Infectious Disease Hx of Infectious Diseases: None - Tetanus Immunization Tetanus Immunization: Up to Date (tetanus 2 yrs ago) - Reproductive Menopause: Yes - Past Medical History Past Medical History: No Previous - Cardiac Hx Cardiac Disorders: Yes Hx Congestive Heart Failure: Yes Hx Hypertension: Yes Hx Peripheral Edema: Yes Hx Peripheral Vascular Disease: Yes - Pulmonary Hx Respiratory Disorders: Yes Hx Bronchitis: Yes - Neurological Hx Neurological Disorder: Yes Hx Vertigo: Yes - HEENT Hx HEENT Disorder: No - Renal Hx Renal Disorder: No - Endocrine/Metabolic Hx Endocrine Disorders: No - Hematological/Oncological Hx Blood Disorders: No - Integumentary Hx Dermatological Disorder: Yes Hx Cellulitis: Yes (s/p arthroscopy right knee) - Musculoskeletal/Rheumatological Hx Musculoskeletal Disorders: Yes Hx Arthritis: Yes Hx Back Pain: Yes Hx Osteoarthritis: Yes Hx Rheumatoid Arthritis: Yes - Gastrointestinal Hx Gastrointestinal Disorders: No - Genitourinary/Gynecological Hx Genitourinary Disorders: No - Psychiatric Hx Psychophysiologic Disorder: No Hx Substance Use: No - Surgical History Hx Appendectomy: Yes Hx Cholecystectomy: Yes Hx Orthopedic Surgery: Yes Other/Comment: upper spine surgery jul 2014, lumbar surgery - Anesthesia Hx Anesthesia: Yes Hx Anesthesia Reactions: No Hx Malignant Hyperthermia: No - Suicidal Assessment Feels Threatened In Home Enviroment: No <Justo Mansfield - Last Filed: 01/12/19 21:46> Family/Social History - Physician Review Nursing Documentation Reviewed: Yes Family/Social History: Unknown Family HX Smoking Status: Never Smoked Hx Alcohol Use: No Hx Substance Use: No Hx Substance Use Treatment: No <Justo Mansfield - Last Filed: 01/12/19 21:46> Allergies/Home Meds <Go Lambert - Last Filed: 01/12/19 20:44> <Justo Mansfield - Last Filed: 01/12/19 21:46> Allergies/Adverse Reactions: Allergies Penicillins Adverse Reaction (Verified 01/02/19 19:27) URTICARIA Home Medications: Home Meds Medication Instructions Recorded Confirmed Isosorbide Dinitrate [Isordil] 1 tab PO DAILY 05/30/17 12/02/18 Carvedilol [Coreg] 12.5 mg PO BID 05/31/18 12/02/18 Furosemide [Lasix] 40 mg PO TID 05/31/18 12/02/18 Potassium Chloride [K-Dur 20 mEq 20 meq PO BID 12/02/18 12/02/18 ER Tab] Pregabalin [Lyrica] 100 mg PO BID 12/02/18 12/02/18 hydrOXYzine HCl [Atarax] 25 mg PO DAILY 12/02/18 12/02/18 metOLazone [Zaroxolyn] 5 mg PO DAILY 12/02/18 12/02/18 Review of Systems - Review of Systems Constitutional: absent: Fatigue, Fevers Eyes: absent: Vision Changes ENT: absent: Hearing Changes Respiratory: absent: SOB, Cough Cardiovascular: absent: Chest Pain Gastrointestinal: absent: Abdominal Pain, Diarrhea, Nausea, Vomiting Musculoskeletal: Arthralgias. absent: Back Pain, Neck Pain, Joint Swelling, Myalgias Skin: absent: Rash, Pruritis Neurological: absent: Headache, Dizziness Psychiatric: absent: Anxiety, Depression, Suicidal Ideation <Justo Mansfield - Last Filed: 01/12/19 21:46> Physical Exam Vital Signs Temp Pulse Resp BP Pulse Ox 01/12/19 19:02 97.7 F 67 18 149/84 96 <Go Lambert - Last Filed: 01/12/19 20:44> Vital Signs Reviewed: Yes Vital Signs Temp Pulse Resp BP Pulse Ox 01/12/19 19:02 97.7 F 67 18 149/84 96 Temperature: Afebrile Blood Pressure: Normal Pulse: Regular Respiratory Rate: Normal Appearance: Positive for: Well-Appearing, Non-Toxic, Comfortable Pain Distress: Moderate Mental Status: Positive for: Alert and Oriented X 3 - Systems Exam Head: Present: Atraumatic, Normocephalic Pupils: Present: PERRL Extroacular Muscles: Present: EOMI Conjunctiva: Present: Normal Mouth: Present: Moist Mucous Membranes Neck: Present: Normal Range of Motion Respiratory/Chest: Present: Clear to Auscultation, Good Air Exchange. No: Respiratory Distress, Accessory Muscle Use Cardiovascular: Present: Regular Rate and Rhythm, Normal S1, S2. No: Murmurs Abdomen: No: Tenderness, Distention, Peritoneal Signs Back: Present: Normal Inspection Upper Extremity: Present: Normal Inspection, Other (LUE: no tenderness or swelling, no scaphoid tenderness, no erythematous, no erythematous/cellulitis/ulcer, FROM, sensation intact, motor 5/5, +radial pulse, capillary refill< 2 seconds, neurovascular intact. ). No: Cyanosis, Edema Lower Extremity: Present: Normal Inspection. No: Edema Neurological: Present: GCS=15, CN II-XII Intact, Speech Normal Skin: Present: Warm, Dry, Normal Color. No: Rashes Psychiatric: Present: Alert, Oriented x 3, Normal Insight, Normal Concentration <Justo Mansfield Q - Last Filed: 01/12/19 21:46> Medical Decision Making - RAD Interpretation Radiology Orders: 01/12/19 19:26 HAND LEFT 3 VIEWS ROUTINE [RAD] Stat - Medication Orders Current Medication Orders: Discontinued Medications Ketorolac Tromethamine (Toradol) 60 mg IM STAT STA Stop: 01/12/19 19:27 Last Admin: 01/12/19 20:13 Dose: 60 mg MAR Pain Assessment Document 01/12/19 20:13 (Rec: 01/12/19 20:13 [id number]) Pain Reassessment Is this a pain reassessment? No Sleep Is patient sleeping during reassessment? No Presence of Pain Presence of Pain Yes Pain Scale Used Protocol: PSCALES Pain Scale Used Numeric Location Left, Right or Bilateral Right Pain Location Body Site Hand Description Intensity of Pain at present 7 IM Administration Charges Document 01/12/19 20:13 EB (Rec: 01/12/19 20:13 [id number]) Injection Site MAR Injection Site Right Deltoid Charges for Administration # of IM Administrations 1 <Fausto,Og - Last Filed: 01/12/19 20:44> ED Course and Treatment: 01/12/19 19:32 -Lt. hand xray -Toradol IM for pain -Observe an reassess 01/12/19 21:44 -Lt. hand xray: Er wet read show no fracture/dislocation -I discussed the xray image with the patient. -Hand splint applied with neurovascular intact. -Discharge home with reji, education on follow up with your own pmd and hand specialist within 2 days, return to the ER for any new or worsening signs or symptoms. <Justo Mansfield - Last Filed: 01/12/19 21:46> - PA / CHILD CAREGIVER PRIVATE HOME / Resident Statement DOROTHY has reviewed & agrees with the documentation as recorded. <Go Lambert - Last Filed: 01/12/19 20:44> - PA / CHILD CAREGIVER PRIVATE HOME / Resident Statement DOROTHY has reviewed & agrees with the documentation as recorded. <Justo Mansfield - Last Filed: 01/12/19 21:46> Disposition/Present on Arrival <Go Lambert - Last Filed: 01/12/19 20:44> - Present on Arrival Any Indicators Present on Arrival: No History of DVT/PE: No History of Uncontrolled Diabetes: No Urinary Catheter: No History of Decub. Ulcer: No History Surgical Site Infection Following: None - Disposition Have Diagnosis and Disposition been Completed?: Yes Disposition Time: 21:45 Patient Plan: Discharge <Justo Mansfield - Last Filed: 01/12/19 21:46> - Disposition Diagnosis: Hand pain Disposition: HOME/ ROUTINE Condition: IMPROVED Additional Instructions: -Discharge home with reji, education on follow up with your own pmd and hand specialist within 2 days, return to the ER for any new or worsening signs or symptoms. Prescriptions: Meloxicam [Mobic] 15 mg PO DAILY PRN #14 tab PRN Reason: Other Referrals: Olena Tobin MD [Primary Care Provider] - Follow up with primary Jose Elias Loaiza MD [Staff Provider] - Follow up with primary Forms: [employer] ([place]hi), WORK NOTE
--- NOTE | 2019-01-13 11:43 | RAD ---
PROCEDURE: Left Hand Radiographs. HISTORY: lt. hand pain COMPARISON: None. TECHNIQUE: 3 views obtained. FINDINGS: BONES: Normal. No fracture. JOINTS: Joint space narrowing in the PIP and DIP joints and base of the thumb consistent with osteoarthritis SOFT TISSUES: Normal. OTHER FINDINGS: None. IMPRESSION: Joint space narrowing in the PIP and DIP joints and base of the thumb consistent with osteoarthritis
== END 2019-01-12 23:01 | disposition home or self-care (01) ==
LOC: ED 19:01
DX: M79.642 Pain in left hand (principal); I50.9 Heart failure, unspecified; M06.9 Rheumatoid arthritis, unspecified; I10 Essential (primary) hypertension; G62.9 Polyneuropathy, unspecified; Z88.0 Allergy status to penicillin
CPT/HCPCS: 73130; 81025; 96372; 99283; J1885

== ENCOUNTER 2019-02-18 00:18 | Observation (INO) | payer OTHER ==
[2019-02-18 00:31] VITALS: BMI 36.9
[2019-02-18] MEDS ORDERED: Vancomycin 1gm in NS 250ml 1 GM/250 ML BAG IVPB STA (00:48)
--- NOTE | 2019-02-18 00:51 | ED PDOC ---
Arrival/HPI - General Chief Complaint: Lower Extremity Problem/Injury Time Seen by Provider: 02/18/19 00:39 Historian: Patient - History of Present Illness Narrative History of Present Illness (Text): 02/18/19 00:46 Madelin Medel is a 54 year old female, whose past medical history includes hypertension, CHF, rheumatoid arthritis, laminectomy, DVT, and chronic bilateral peripheral neuropathy, who presents to the ED complaining of cellulitis to right lower leg. Patient states she recently underwent surgery on her right foot and developed redness/pain to her right gastelum. Patient also notes a small weeping wound to her right gastelum. Patient denies any fever, chills, chest pain, shortness of breath, nausea, vomiting, diarrhea, urinary symptoms, back pain, neck pain, headache, dizziness, or any other complaints. Symptom Onset: Gradual Symptom Course: Unchanged Activities at Onset: Light Context: Home Past Medical History - Provider Review Nursing Documentation Reviewed: Yes - Infectious Disease Hx of Infectious Diseases: None - Tetanus Immunization Tetanus Immunization: Up to Date (tetanus 2 yrs ago) - Past Medical History Past Medical History: No Previous - Cardiac Hx Cardiac Disorders: Yes Hx Congestive Heart Failure: Yes Hx Hypertension: Yes Hx Peripheral Edema: Yes Hx Peripheral Vascular Disease: Yes - Pulmonary Hx Respiratory Disorders: Yes Hx Bronchitis: Yes - Neurological Hx Neurological Disorder: Yes Hx Vertigo: Yes - HEENT Hx HEENT Disorder: No - Renal Hx Renal Disorder: No - Endocrine/Metabolic Hx Endocrine Disorders: No - Hematological/Oncological Hx Blood Disorders: No - Integumentary Hx Dermatological Disorder: Yes Hx Cellulitis: Yes (s/p arthroscopy right knee) - Musculoskeletal/Rheumatological Hx Musculoskeletal Disorders: Yes Hx Arthritis: Yes Hx Back Pain: Yes Hx Osteoarthritis: Yes Hx Rheumatoid Arthritis: Yes - Gastrointestinal Hx Gastrointestinal Disorders: No - Genitourinary/Gynecological Hx Genitourinary Disorders: No - Psychiatric Hx Psychophysiologic Disorder: No Hx Substance Use: No - Surgical History Hx Appendectomy: Yes Hx Cholecystectomy: Yes Hx Orthopedic Surgery: Yes Other/Comment: upper spine surgery jul 2014, lumbar surgery - Anesthesia Hx Anesthesia: Yes Hx Anesthesia Reactions: No Hx Malignant Hyperthermia: No - Suicidal Assessment Feels Threatened In Home Enviroment: No Family/Social History - Physician Review Nursing Documentation Reviewed: Yes Family/Social History: Unknown Family HX Smoking Status: Never Smoked Hx Alcohol Use: No Hx Substance Use: No Hx Substance Use Treatment: No Allergies/Home Meds Allergies/Adverse Reactions: Allergies Penicillins Adverse Reaction (Verified 02/18/19 00:34) URTICARIA Home Medications: Home Meds Medication Instructions Recorded Confirmed Isosorbide Dinitrate [Isordil] 1 tab PO DAILY 05/30/17 02/18/19 Carvedilol [Coreg] 12.5 mg PO BID 05/31/18 02/18/19 Furosemide [Lasix] 40 mg PO TID 05/31/18 02/18/19 Potassium Chloride [K-Dur 20 mEq 20 meq PO BID 12/02/18 02/18/19 ER Tab] Pregabalin [Lyrica] 100 mg PO DAILY 12/02/18 02/18/19 hydrOXYzine HCl [Atarax] 50 mg PO HS 12/02/18 02/18/19 metOLazone [Zaroxolyn] 5 mg PO DAILY 12/02/18 02/18/19 Melatonin [Meladox] 3 mg PO HS 02/18/19 02/18/19 Pregabalin [Lyrica] 200 mg PO HS 02/18/19 02/18/19 Review of Systems - Physician Review All systems were reviewed & negative as marked: Yes - Review of Systems Constitutional: Normal. absent: Fevers Eyes: Normal ENT: Normal Respiratory: Normal. absent: SOB, Cough Cardiovascular: Normal. absent: Chest Pain Gastrointestinal: Normal. absent: Abdominal Pain, Diarrhea, Nausea, Vomiting Genitourinary Female: Normal. absent: Dysuria, Frequency, Hematuria, Urine Output Changes Musculoskeletal: Normal. absent: Back Pain, Neck Pain Skin: Skin Lesions, Cellulitis Neurological: Normal. absent: Headache, Dizziness Endocrine: Normal Hemo/Lymphatic: Normal Psychiatric: Normal Physical Exam Vital Signs Reviewed: Yes Vital Signs Temp Pulse Resp BP Pulse Ox 02/18/19 00:34 98.6 F 62 16 151/62 H 97 Temperature: Afebrile Blood Pressure: Hypertensive Pulse: Regular Respiratory Rate: Normal Appearance: Positive for: Well-Appearing, Non-Toxic, Comfortable Pain Distress: None Mental Status: Positive for: Alert and Oriented X 3 - Systems Exam Head: Present: Atraumatic, Normocephalic Pupils: Present: PERRL Extroacular Muscles: Present: EOMI Conjunctiva: Present: Normal Mouth: Present: Moist Mucous Membranes Neck: Present: Normal Range of Motion Respiratory/Chest: Present: Clear to Auscultation, Good Air Exchange. No: Respiratory Distress, Accessory Muscle Use Cardiovascular: Present: Regular Rate and Rhythm, Normal S1, S2. No: Murmurs Abdomen: No: Tenderness, Distention, Peritoneal Signs Back: Present: Normal Inspection Upper Extremity: Present: Normal Inspection. No: Cyanosis, Edema Lower Extremity: Present: Erythema (Cellulitis to right gastelum, small skin lesion to right gastelum). No: Edema, Cyanosis, Deformity Neurological: Present: GCS=15, CN II-XII Intact, Speech Normal Skin: Present: Warm, Dry, Normal Color. No: Rashes Psychiatric: Present: Alert, Oriented x 3, Normal Insight, Normal Concentration Medical Decision Making ED Course and Treatment: 02/18/19 00:46 Impression: 54 year old female complaining of redness/pain/discharge from right lower leg. Plan: -- Labs, blood cultures -- Vancomycin -- Reassess and disposition Prior Visits: Notes and results from previous visits were reviewed. Progress Notes: 02/18/19 00:[address] Manley, who is aware and agrees with plan. Accepts pt in to hospitalist service. Pt will go to [facility] observation for leg cellulitis. vice president risk management notified. - Lab Interpretations I have reviewed the lab results: Yes - Scribe Statement The provider has reviewed the documentation as recorded by the Frank Spangler Provider Scribe Attestation: All medical record entries made by the Scribe were at my direction and personally dictated by me. I have reviewed the chart and agree that the record accurately reflects my personal performance of the history, physical exam, medical decision making, and the department course for this patient. I have also personally directed, reviewed, and agree with the discharge instructions and disposition. Disposition/Present on Arrival - Present on Arrival Any Indicators Present on Arrival: No History of DVT/PE: No History of Uncontrolled Diabetes: No Urinary Catheter: No History of Decub. Ulcer: No History Surgical Site Infection Following: None - Disposition Have Diagnosis and Disposition been Completed?: Yes Diagnosis: Cellulitis of right lower leg Disposition: HOSPITALIZED Disposition Time: 00:55 Patient Problems: Current Active Problems Problem Status Onset Cellulitis of right lower leg Acute Condition: GOOD
--- NOTE | 2019-02-18 01:09 | CP.PCM.HP ---
<MasterJesu - Last Filed: 02/18/19 04:51> History of Present Illness - History of Present Illness History of Present Illness: Jesu Thao, PGY1 H&P for Dr. Manley cc: "right leg drainage x1 day duration" Patient is a 54 y/o F with PMHx HTN, CHF, RA, Cervical/Lumbar Laminectomy, DVT 2/2 Vein Stripping (1979), Chronic Bilateral Peripheral Neuropathy who presents to the ED for right leg drainage for x1 day duration. She recently went for a right foot surgery for her neuropathy on 02/08/19. She said that since then, she noticed drainage coming from her right lower extremity. Drainage is clear, no pus or blood was noted by her. She says that in the past she had a right knee surgery and the same thing happened to her, in which she had cellulitis after her surgery. She also notes redness at the right foot/gastelum. In addition, she also endorses swelling at the left foot that has been going on for two days. She said she last went to her doctor a few days ago to take a look at her right foot s/p surgery and doctor said that everything was normal. It was only after that, in which she noticed drainage and redness. She denies fever, chills, cp, sob, n/v/d, bowel/bladder changes. A full 12 point ROS was conducted and unremarkable except as stated above. PMD-Dr. Tobin PMHx: HTN, CHF, RA, Cervical/Lumbar Laminectomy, DVT 2/2 Vein Stripping (1979), Chronic Bilateral Peripheral Neuropathy PSHx: cervical and lumbar laminectomy, R knee surgery FamHx: Mother- cancer-, Father- PA (MVA)-, Sister- CHF- SocialHx: denies EtOH, tobacco, and illicit drug use. Allergies- PCN Meds: see MAR. Present on Admission - Present on Admission Any Indicators Present on Admission: No Review of Systems - Review of Systems All systems: reviewed and no additional remarkable complaints except (as per HPI) Past Patient History - Infectious Disease Hx of Infectious Diseases: None - Tetanus Immunizations Tetanus Immunization: Up to Date (tetanus 2 yrs ago) - Past Medical History & Family History Past Medical History?: Yes - Past Social History Smoking Status: Never Smoked - CARDIAC Hx Cardiac Disorders: Yes Hx Congestive Heart Failure: Yes Hx Hypertension: Yes Hx Peripheral Edema: Yes Hx Peripheral Vascular Disease: Yes - PULMONARY Hx Respiratory Disorders: Yes Hx Bronchitis: Yes - NEUROLOGICAL Hx Neurological Disorder: Yes Hx Vertigo: Yes - HEENT Hx HEENT Problems: No - RENAL Hx Chronic Kidney Disease: No - ENDOCRINE/METABOLIC Hx Endocrine Disorders: No - HEMATOLOGICAL/ONCOLOGICAL Hx Blood Disorders: No - INTEGUMENTARY Hx Dermatological Problems: Yes Hx Cellulitis: Yes (s/p arthroscopy right knee) - MUSCULOSKELETAL/RHEUMATOLOGICAL Hx Musculoskeletal Disorders: Yes Hx Arthritis: Yes Hx Back Pain: Yes Hx Osteoarthritis: Yes Hx Rheumatoid Arthritis: Yes - GASTROINTESTINAL Hx Gastrointestinal Disorders: No - GENITOURINARY/GYNECOLOGICAL Hx Genitourinary Disorders: No - PSYCHIATRIC Hx Psychophysiologic Disorder: No Hx Substance Use: No - SURGICAL HISTORY Hx Appendectomy: Yes Hx Cholecystectomy: Yes Hx Orthopedic Surgery: Yes Other/Comment: upper spine surgery jul 2014, lumbar surgery - ANESTHESIA Hx Anesthesia: Yes Hx Anesthesia Reactions: No Hx Malignant Hyperthermia: No Meds Allergies/Adverse Reactions: Allergies Allergy/AdvReac Type Severity Reaction Status Date / Time Penicillins AdvReac URTICARIA Verified 02/18/19 00:34 Physical Exam - Constitutional Appears: No Acute Distress - Head Exam Head Exam: ATRAUMATIC, NORMAL INSPECTION, NORMOCEPHALIC - Eye Exam Eye Exam: EOMI, Normal appearance - ENT Exam ENT Exam: Mucous Membranes Moist - Respiratory Exam Respiratory Exam: Clear to Auscultation Bilateral, NORMAL BREATHING PATTERN. absent: Accessory Muscle Use, Chest Wall Tenderness, Rales, Rhonchi, Wheezes - Cardiovascular Exam Cardiovascular Exam: RRR, +S1, +S2 - GI/Abdominal Exam GI & Abdominal Exam: Normal Bowel Sounds, Soft. absent: Firm, Guarding, Pulsatile Mass, Rebound, Rigid, Tenderness - Extremities Exam Extremities exam: Positive for: normal capillary refill, pedal pulses present. Negative for: calf tenderness Additional comments: Right lower extremity erythema, warm to touch in comparison to left lower ext. Sutures noted at dorsum of right forefoot at the mid-digits. Serous drainage noted at the right gastelum/distal lower extremity. Left foot is noticeably swollen in comparison to right; negative Anyi sign. Distal LE pulses intact, +2. Motor strength 5/5 LE bilaterally. Sensation also intact at bilateral lower ext. - Back Exam Back exam: NORMAL INSPECTION - Neurological Exam Neurological exam: Alert, CN II-XII Intact, Oriented x3 - Psychiatric Exam Psychiatric exam: Normal Affect, Normal Mood - Skin Skin Exam: Dry, Intact, Normal Color, Warm Results - Vital Signs Recent Vital Signs: Last Vital Signs Temp 98.6 F 02/18/19 00:34 Pulse 62 02/18/19 00:34 Resp 16 02/18/19 00:34 BP 151/62 H 02/18/19 00:34 Pulse Ox 97 02/18/19 00:34 - Labs Result Diagrams: 02/18/19 01:00 02/18/19 01:00 Assessment & Plan - Assessment and Plan (Free Text) Assessment: Patient is a 54 y/o F with PMHx HTN, CHF, RA, Cervical/Lumbar Laminectomy, DVT 2/2 Vein Stripping (1979), Chronic Bilateral Peripheral Neuropathy who presents to the ED for right leg drainage for x1 day duration. Plan: Right Lower Extremity Cellulitis - Vancomycin 1g IVPB daily - Tylenol prn for mild pain control - ID consulted (Dr. Kirkland) - Podiatry consulted (Dr. Scott) - Wound Cx - Blood Cx - Afebrile and no leukocytosis at this time Left Ankle/Foot Swelling - Left lower ext venous doppler to r/o DVT - Hx DVT in past 2/2 vein stripping Hypokalemia - K was 2.9 in ED; repleted - resume home med Potassium chloride 20meq PO BID Rheumatoid Arthritis - resume home meds meloxicam Bilateral Peripheral Neuropathy - resume home med Lyrica - resume home med tramadol 50mg BID prn CHF - resume home meds lasix 40mg TID, coreg 12.5mg BID, isosorbide dinitrate 10mg daily - No prior echo in [facility] [place] ppx: - Lovenox Diet: HHD Dispo: Monitor patient on floor. Case was discussed and reviewed with Attending Physician, Dr. Manley <Isaura Manley - Last Filed: 02/18/19 05:16> Results - Vital Signs Recent Vital Signs: Last Vital Signs Temp 98.6 F 02/18/19 00:34 Pulse 62 02/18/19 00:34 Resp 20 02/18/19 03:13 BP 151/62 H 02/18/19 00:34 Pulse Ox 97 02/18/19 00:34 - Labs Result Diagrams: 02/18/19 01:00 02/18/19 01:00 Labs: Laboratory Results - last 24 hr 02/18/19 02/18/19 01:00 01:00 WBC 8.5 RBC 4.35 Hgb 13.7 D Hct 40.1 MCV 92.2 MCH 31.5 MCHC 34.2 RDW 12.2 Plt Count 178 MPV 11.6 H Neut % (Auto) 60.1 Lymph % (Auto) 27.5 [place] % (Auto) 10.5 H Eos % (Auto) 1.7 Baso % (Auto) 0.2 Lymph # (Auto) 2.3 [place] # (Auto) 0.9 H Eos # (Auto) 0.1 Baso # (Auto) 0.02 Absolute Neuts (auto) 5.10 Sodium 135 Potassium 2.9 L* Chloride 89 L Carbon Dioxide 35 H Anion Gap 14 BUN 13 Creatinine 0.6 L Est GFR ( Amer) > 60 Est GFR (Non-Af Amer) > 60 Random Glucose 209 H Calcium 8.8 Total Bilirubin 0.6 AST 30 ALT 18 Alkaline Phosphatase 93 Total Protein 7.2 Albumin 3.9 Globulin 3.4 Albumin/Globulin Ratio 1.1 Attending/Attestation - Attestation I have personally seen and examined this patient.: Yes I have fully participated in the care of the patient.: Yes I have reviewed all pertinent clinical information: Yes Notes (Text): 02/18/19 05:08 Patient was seen when she was in cubicle # 5 in the ER. Medical record was reviewed. Agree with history, physical examination, assessment and plan. This 54 year old white obese woman complained of pain in both legs, more in right side of 2 days duration, redness of both legs, has PMH of rheumatoid arthritis, osteomyelitis, CHF, obesity, neuropathy, insomnia, negative colonoscopy, upper and lower spine surgery in 2004 and 2016, a ppendectomy, cholecystectomy, right knee meniscal tear x 4, left breast lumpectomy, fall in 2013,chest pains a few times, has reading glasses, cardica cath x 2 , 3 and 16 years ago, were negative, family history positive for breast cancer(mother, MGM), throat cancer(mother, MGF).
[2019-02-18 01:31] LABS: BASO # 0.02 K/mm3 (0.0-2.0); BASO % 0.2 % (0.0-3.0); EOS # 0.1 (0.0-0.7); EOS % 1.7 % (1.5-5.0); LYMPH # 2.3 (1.2-3.4); LYMPH % 27.5 % (22.0-35.0); MEAN CELL VOLUME 92.2 fl (80.0-105.0); MEAN CORPUSCULAR HEMOGLOBIN 31.5 pg (25.0-35.0); MEAN CORPUSCULAR HGB CONC 34.2 g/dl (31.0-37.0); MEAN PLATELET VOLUME 11.6 fl (7.0-11.0); MONO # 0.9 (0.1-0.6); MONO % 10.5 % (1.0-6.0); RBC 4.35 10^6/uL (3.5-6.1); RED CELL DISTRIBUTION WIDTH 12.2 % (11.5-14.5); WHITE BLOOD COUNT 8.5 10^3/uL (4.5-11.0)
[2019-02-18 01:32] LABS: HEMOGLOBIN 13.7 g/dL (12.0-16.0)
[2019-02-18 01:51] LABS: ALB/GLOB RATIO 1.1 (1.1-1.8); ALBUMIN 3.9 g/dL (3.0-4.8); ALT/SGPT 18 U/L (7-56); AST/SGOT 30 U/L (14-36); BLOOD UREA NITROGEN 13 mg/dL (7-21); CALCIUM 8.8 mg/dL (8.4-10.5); GFR NON-AFRICAN AMERICAN > 60
[2019-02-18] MEDS ORDERED: Potassium Chloride 20 mEq ER Tab PO STA ×2 (01:52→03:45)
[2019-02-18 04:01] VITALS: RESP 20
[2019-02-18] MEDS ORDERED: Pneumococcal 23-Valent Vaccine IM ONE (04:01)
[2019-02-18] MEDS: Pantoprazole 40 mg EC Tab PO SCH (05:55)
[2019-02-18] MEDS ORDERED: Potassium Chloride 20 mEq ER Tab PO SCH (10:00)
[2019-02-18] MEDS ORDERED: Vancomycin 1gm in NS 250ml 1 GM/250 ML BAG IVPB SCH (10:00)
[2019-02-18] MEDS: Enoxaparin 40 mg Syringe SC SCH (10:15)
[2019-02-18] MEDS: metOLazone 5 MG TAB PO SCH (10:16)
[2019-02-18] MEDS: Vancomycin 1gm in NS 250ml 1 GM/250 ML BAG IVPB SCH ×2 (10:16→20:42)
--- NOTE | 2019-02-18 10:35 | CON ---
DATE: $#DTOFSERVICE (Always retain DOS field) HISTORY OF PRESENT ILLNESS: Text. PROCEDURE With type this 11/30 today's date is 02/18/2019, [id number]. The patient is seen earlier today in room 375 bed to chief complaint is.. The right leg infection times several days. HISTORY OF PRESENT ILLNESS Is a 54-year-old female with a history of hypertension, history of congestive heart failure, rheumatoid arthritis, history of end DVT, history of her right leg cellulitis seen by me and 2016. Patient the patient with peripheral neuropathy and.... History of osteoarthritis and rheumatoid arthritis. There is a history of laminectomy, appendectomy and cholecystectomy always. Allergic to penicillin she develops a rash and we will is admitted with red erythema. The patient also with obesity with a BMI of 36. REVIEW OF SYSTEMS 12-point review of systems performed. Past medical history is as stated with hypertension, DVT right leg cellulitis, congestive heart failure room for arthritis and peripheral neuropathy, osteoarthritis, obesity and the patient had the patient's past surgical history of laminectomy, appendectomy and cholecystectomy and the patient also had. Surgery on the right foot between the toe was. 2 days ago on male. On exam, the patient is in bed, answering questions appropriately with a temperature of 98, pulse of 62. Where respiratory rate of 20. Blood pressure is 133/81. Examination of HEENT is unremarkable. Neck: Supple. Lungs: Have decreased breath sounds are normal S1, S2. Abdomen is soft, nontender. Laboratory examination of the right leg there is erythema and the right leg and. There is sutures and the foot with a surgeries done there is also of tinea.. Medications at home include the patient to be on tramadol................ ASSESSMENT Of 20 and is a.... Of 54-year-old female with #1 is a right leg cellulitis and the patient also wish to penicillin unable to use Zyvox because of the tramadol and the drug drug interaction with essentially the patient has no fever. The patient does have 20 and secondary to tenia in between her toes we will treat the patient with vancomycin and Lotrisone cream. And between the toes. Lotrimin cream. B.i.d. times 10 days and in between a dose of the feet............. The patient had days of 52. With a random glucose is elevated. We will order hemoglobin A1c an HIV test.. The patient did have a rapid test and HIV negative in 2013. We will order a fourth generation test and hemoglobin and an options for p.o. antibiotics with the doxycycline. May be able to use Bactrim. We will also. Double strength p.o. b.i.d... Times 5-7 days. The patient's cultures are pending and we will follow with you... Review of vitals the patient does not need a service criteria no white count. No fevers, no tachycardia, no dyspnea, it is improving right leg cellulitis, was sent with tinea.... PAST MEDICAL HISTORY: Text. FAMILY HISTORY: Text. SOCIAL HISTORY: Text. REVIEW OF SYSTEMS: Text. PHYSICAL EXAMINATION GENERAL: Text. VITAL SIGNS: Text. HEENT: Text. NECK: Text. CARDIOPULMONARY: Text. LUNGS: Text. ABDOMEN: Text. (Always change the subheading "ABDOMEN" to "GASTROINTESTINAL" for Dr. Maksim Hickman, Dr. Paulo Baldwin, and Dr. Kolby Cano) EXTREMITIES: Text. LABORATORY DATA: Text. ASSESSMENT: Text. PLAN: Text. $#[email or web address] (Delete this signature block when dictator is a preceptor.) cc: MD Jeremy (Delete if not dictated.) DD: $#DTDICT $#TMDICT([facility]:mm:ss) DT: $#DTTRAN $#TMTRAN([facility]:mm:ss) Job # $#DOCID
[2019-02-18] MEDS: Clotrimazole 1% Cream(30 gm) TOP SCH ×2 (11:09→19:19)
[2019-02-18 11:12] LABS: BLOOD UREA NITROGEN 12 mg/dL (7-21); CALCIUM 8.9 mg/dL (8.4-10.5); GFR NON-AFRICAN AMERICAN > 60
[2019-02-18] MEDS ORDERED: Potassium Chloride 20 mEq ER Tab PO ONE ×2 (13:00→16:30)
[2019-02-18] MEDS ORDERED: Dextrose 50% SYRINGE Inj (50 ml) IV PRN (13:04)
[2019-02-18] MEDS ORDERED: Docusate-Senna 50 mg-8.6 mg Tab PO PRN (13:05)
--- NOTE | 2019-02-18 14:14 | CP.PCM.CON ---
<Emily Emanuel - Last Filed: 02/18/19 14:14> History of Present Illness - History of Present Illness History of Present Illness: Podiatry Consult: Dr. Espinal/Sonia 54F patient, with PMHx of HTN, CHF, RA, chronic bilateral peripheral neuropathy, seen and examined at bedside for R lower extremity abrasion and cellultic changes. Patient states that she banged her gastelum on the stove about a week ago, the area healed, and two days ago the same area opened up and started draining clear fluid. She noticed the area was red as well and decided to get evaluated at the hospital. Patient also admits to neuroma surgery to R forefoot done on February 08 at a surgical center by a local sprinkler fitter. She has a follow up visit for suture removal the first week of February. She denies any nausea/vomiting /fever/chest pain. PMHx: as above ALL: PCN (rash) Past Patient History - Infectious Disease Hx of Infectious Diseases: None - Tetanus Immunizations Tetanus Immunization: Up to Date (tetanus 2 yrs ago) - Past Medical History & Family History Past Medical History?: Yes - Past Social History Smoking Status: Never Smoked - CARDIAC Hx Cardiac Disorders: Yes Hx Congestive Heart Failure: Yes Hx Hypertension: Yes Hx Peripheral Edema: Yes Hx Peripheral Vascular Disease: Yes - PULMONARY Hx Respiratory Disorders: Yes Hx Bronchitis: Yes - NEUROLOGICAL Hx Neurological Disorder: Yes Hx Vertigo: Yes - HEENT Hx HEENT Problems: No - RENAL Hx Chronic Kidney Disease: No - ENDOCRINE/METABOLIC Hx Endocrine Disorders: No - HEMATOLOGICAL/ONCOLOGICAL Hx Blood Disorders: No - INTEGUMENTARY Hx Dermatological Problems: Yes Hx Cellulitis: Yes (s/p arthroscopy right knee) - MUSCULOSKELETAL/RHEUMATOLOGICAL Hx Musculoskeletal Disorders: Yes Hx Arthritis: Yes Hx Back Pain: Yes Hx Osteoarthritis: Yes Hx Rheumatoid Arthritis: Yes - GASTROINTESTINAL Hx Gastrointestinal Disorders: No - GENITOURINARY/GYNECOLOGICAL Hx Genitourinary Disorders: No - PSYCHIATRIC Hx Psychophysiologic Disorder: No Hx Substance Use: No - SURGICAL HISTORY Hx Appendectomy: Yes Hx Cholecystectomy: Yes Hx Orthopedic Surgery: Yes Other/Comment: upper spine surgery jul 2014, lumbar surgery - ANESTHESIA Hx Anesthesia: Yes Hx Anesthesia Reactions: No Hx Malignant Hyperthermia: No Meds Allergies/Adverse Reactions: Allergies Allergy/AdvReac Type Severity Reaction Status Date / Time Penicillins AdvReac URTICARIA Verified 02/18/19 00:34 - Medications Medications: Current Medications Acetaminophen (Tylenol 325mg Tab) 650 mg PO Q6H PRN PRN Reason: Pain, Mild (1-3) Carvedilol (Coreg) 12.5 mg PO BID [facility] Last Admin: 02/18/19 10:11 Dose: 12.5 mg Clotrimazole (Lotrimin 1%) 0 gm TOP BID [facility] Stop: 02/28/19 10:01 Last Admin: 02/18/19 11:09 Dose: 1 appl Dextrose (Dextrose 50% Inj) 0 ml IV STAT PRN; Protocol PRN Reason: Hypoglycemia Protocol Docusate Sodium (Colace) 100 mg PO DAILY PRN PRN Reason: Constipation Enoxaparin Sodium (Lovenox) 40 mg SC DAILY [facility]; Protocol Last Admin: 02/18/19 10:15 Dose: 40 mg Furosemide (Lasix) 40 mg PO TID [facility] Last Admin: 02/18/19 10:15 Dose: 40 mg Vancomycin HCl (Vancomycin 1gm) 1 gm in 250 mls @ 167 mls/hr IVPB Q12H [facility]; Protocol Stop: 02/27/19 08:01 Last Admin: 02/18/19 10:16 Dose: 167 mls/hr Dextrose (Dextrose 5% In Water 1000 Ml) 1,000 mls @ 0 mls/hr IV .Q0M PRN; Protocol PRN Reason: Hypoglycemia Protocol Insulin Human Regular (Humulin R Low) 0 units SC ACHS [facility]; Protocol Isosorbide Dinitrate (Isordil) 10 mg PO DAILY [facility] Last Admin: 02/18/19 11:09 Dose: 10 mg Meloxicam (Mobic) 15 mg PO DAILY PRN PRN Reason: Pain, moderate (4-7) Metolazone (Zaroxolyn) 5 mg PO DAILY [facility] Last Admin: 02/18/19 10:16 Dose: 5 mg Pantoprazole Sodium (Protonix Ec Tab) 40 mg PO 0600 [facility] Last Admin: 02/18/19 05:55 Dose: Not Given Potassium Chloride (K-Dur 20 Meq Er Tab) 20 meq PO BID [facility] Last Admin: 02/18/19 11:09 Dose: 20 meq Potassium Chloride (K-Dur 20 Meq Er Tab) 20 meq PO ONCE ONE Stop: 02/18/19 16:31 Pregabalin (Lyrica) 100 mg PO BID [facility] Last Admin: 02/18/19 10:15 Dose: 100 mg Senna/Docusate Sodium (Senokot S 50 Mg-8.6 Mg) 1 tab PO DAILY PRN PRN Reason: Constipation Tramadol HCl (Ultram) 50 mg PO BID PRN PRN Reason: Pain, severe (8-10) Physical Exam - Constitutional Appears: Non-toxic, No Acute Distress - Head Exam Head Exam: ATRAUMATIC, NORMOCEPHALIC - Extremities Exam Extremities exam: Positive for: normal capillary refill. Negative for: calf tenderness Additional comments: Vascular: DP/PT WNL, CFT < 3 seconds, TG warm to warm from proximal to distal with mild increase in warmth noted to the abrasion site Ortho: Tenderness to palpation of abrasion, MMT 5/5, no gross deformities appreciated Neuro: Gross sensation intact, protective diminished Derm: Superficial abrasion noted to the anterior aspect of right leg. Mild serou s drainage appreciated, erythema surround the abrasion site. No purulence, no tunneling, no tracking, no malodor. Surigical incision site appreciated to dorsal aspect of R foot secondary to neuropathy surgery, sutures intact, no evidence of dehiscence at this time - Neurological Exam Neurological exam: Alert, Normal Gait, Oriented x3 - Psychiatric Exam Psychiatric exam: Normal Affect, Normal Mood - Skin Skin Exam: Warm Results - Vital Signs Recent Vital Signs: Last Vital Signs Temp 97.6 F 02/18/19 06:00 Pulse 63 02/18/19 10:11 Resp 20 02/18/19 06:00 BP 101/61 02/18/19 10:15 Pulse Ox 95 02/18/19 06:00 - Labs Result Diagrams: 02/18/19 01:00 02/18/19 10:45 Labs: Laboratory Results - last 24 hr 02/18/19 02/18/19 02/18/19 01:00 01:00 10:45 WBC 8.5 RBC 4.35 Hgb 13.7 D Hct 40.1 MCV 92.2 MCH 31.5 MCHC 34.2 RDW 12.2 Plt Count 178 MPV 11.6 H Neut % (Auto) 60.1 Lymph % (Auto) 27.5 [place] % (Auto) 10.5 H Eos % (Auto) 1.7 Baso % (Auto) 0.2 Lymph # (Auto) 2.3 [place] # (Auto) 0.9 H Eos # (Auto) 0.1 Baso # (Auto) 0.02 Absolute Neuts (auto) 5.10 Sodium 135 136 Potassium 2.9 L* 3.1 L Chloride 89 L 92 L Carbon Dioxide 35 H 33 Anion Gap 14 13 BUN 13 12 Creatinine 0.6 L 0.5 L Est GFR ( Amer) > 60 > 60 Est GFR (Non-Af Amer) > 60 > 60 Random Glucose 209 H 220 H Calcium 8.8 8.9 Magnesium 1.9 Total Bilirubin 0.6 AST 30 ALT 18 Alkaline Phosphatase 93 Total Protein 7.2 Albumin 3.9 Globulin 3.4 Albumin/Globulin Ratio 1.1 Assessment & Plan - Assessment and Plan (Free Text) Assessment: 54F with right lower extremity abrasion with cellultic changes Plan: Patient seen and examined Discussed patient in detail with Dr. Teddy Washburn ordered Local wound care: Bactroban, optifoam Surgical site dressed with DSD, ADDISON C/w IV abx per ID recs Will continue to follow Thank you for the consult - Date & Time Date: 02/18/19 Time: 14:15 <Aakash Espinal - Last Filed: 02/19/19 11:03> Meds - Medications Medications: Current Medications Acetaminophen (Tylenol 325mg Tab) 650 mg PO Q6H PRN PRN Reason: Pain, Mild (1-3) Carvedilol (Coreg) 12.5 mg PO BID [facility] Last Admin: 02/19/19 09:41 Dose: 12.5 mg Clotrimazole (Lotrimin 1%) 0 gm TOP BID [facility] Stop: 02/28/19 10:01 Last Admin: 02/18/19 19:19 Dose: 1 appl Dextrose (Dextrose 50% Inj) 0 ml IV STAT PRN; Protocol PRN Reason: Hypoglycemia Protocol Docusate Sodium (Colace) 100 mg PO DAILY PRN PRN Reason: Constipation Enoxaparin Sodium (Lovenox) 40 mg SC DAILY [facility]; Protocol Last Admin: 02/19/19 09:41 Dose: 40 mg Furosemide (Lasix) 40 mg PO TID [facility] Last Admin: 02/19/19 09:41 Dose: 40 mg Vancomycin HCl (Vancomycin 1gm) 1 gm in 250 mls @ 167 mls/hr IVPB Q12H [facility]; Protocol Stop: 02/27/19 08:01 Last Admin: 02/19/19 08:41 Dose: 167 mls/hr Dextrose (Dextrose 5% In Water 1000 Ml) 1,000 mls @ 0 mls/hr IV .Q0M PRN; Protocol PRN Reason: Hypoglycemia Protocol Potassium Chloride (Potassium Chloride 10 Meq/100 Ml) 10 meq in 100 mls @ 100 mls/hr IVPB Q2H [facility] Stop: 02/19/19 12:14 Insulin Human Regular (Humulin R Low) 0 units SC ACHS [facility]; Protocol Last Admin: 02/19/19 08:41 Dose: 3 u Isosorbide Dinitrate (Isordil) 10 mg PO DAILY [facility] Melatonin (Melatonin) 3 mg PO HS [facility] Last Admin: 02/19/19 00:02 Dose: 3 mg Meloxicam (Mobic) 15 mg PO DAILY PRN PRN Reason: Pain, moderate (4-7) Metolazone (Zaroxolyn) 5 mg PO DAILY [facility] Last Admin: 02/19/19 09:39 Dose: 5 mg Mupirocin (Bactroban Ointment) 0 gm TOP BID [facility] Last Admin: 02/18/19 19:17 Dose: 1 applic Pantoprazole Sodium (Protonix Ec Tab) 40 mg PO 0600 [facility] Last Admin: 02/19/19 06:43 Dose: 40 mg Potassium Chloride (K-Dur 20 Meq Er Tab) 20 meq PO BID [facility] Last Admin: 02/19/19 09:40 Dose: 20 meq Potassium Chloride (K-Dur 20 Meq Er Tab) 40 meq PO ONCE ONE Stop: 02/19/19 13:01 Pregabalin (Lyrica) 100 mg PO BID [facility] Last Admin: 02/19/19 09:41 Dose: 100 mg Senna/Docusate Sodium (Senokot S 50 Mg-8.6 Mg) 1 tab PO DAILY PRN PRN Reason: Constipation Tramadol HCl (Ultram) 50 mg PO BID PRN PRN Reason: Pain, severe (8-10) Last Admin: 02/18/19 22:08 Dose: 50 mg Results - Vital Signs Recent Vital Signs: Last Vital Signs Temp 97.8 F 02/19/19 08:28 Pulse 67 02/19/19 08:28 Resp 20 02/19/19 08:28 BP 113/63 02/19/19 09:41 Pulse Ox 94 L 02/19/19 08:28 - Labs Result Diagrams: 02/19/19 05:30 02/19/19 05:30 Labs: Laboratory Results - last 24 hr 02/18/19 02/18/19 02/18/19 10:45 10:45 16:26 WBC RBC Hgb Hct MCV MCH MCHC RDW Plt Count MPV Sodium 136 Potassium 3.1 L Chloride 92 L Carbon Dioxide 33 Anion Gap 13 BUN 12 Creatinine 0.5 L Est GFR ( Amer) > 60 Est GFR (Non-Af Amer) > 60 POC Glucose (mg/dL) 229 H Random Glucose 220 H Hemoglobin A1c 7.3 H Calcium 8.9 Magnesium 1.9 Total Bilirubin AST ALT Alkaline Phosphatase Total Protein Albumin Globulin Albumin/Globulin Ratio 02/18/19 02/19/19 02/19/19 21:46 05:30 05:30 WBC 5.4 D RBC 4.46 Hgb 13.9 Hct 41.1 MCV 92.2 MCH 31.2 MCHC 33.8 RDW 11.9 Plt Count 177 MPV 11.5 H Sodium 135 Potassium 2.7 L* Chloride 88 L Carbon Dioxide 36 H Anion Gap 13 BUN 14 Creatinine 0.7 Est GFR ( Amer) > 60 Est GFR (Non-Af Amer) > 60 POC Glucose (mg/dL) 271 H Random Glucose 247 H Hemoglobin A1c Calcium 8.7 Magnesium Total Bilirubin 0.4 AST 25 ALT 16 Alkaline Phosphatase 81 Total Protein 7.3 Albumin 3.7 Globulin 3.6 Albumin/Globulin Ratio 1.0 L 02/19/19 07:30 WBC RBC Hgb Hct MCV MCH MCHC RDW Plt Count MPV Sodium Potassium Chloride Carbon Dioxide Anion Gap BUN Creatinine Est GFR ( Amer) Est GFR (Non-Af Amer) POC Glucose (mg/dL) 258 H Random Glucose Hemoglobin A1c Calcium Magnesium Total Bilirubin AST ALT Alkaline Phosphatase Total Protein Albumin Globulin Albumin/Globulin Ratio Attending/Attestation - Attestation I have personally seen and examined this patient.: Yes I have fully participated in the care of the patient.: Yes I have reviewed all pertinent clinical information: Yes
[2019-02-18] MEDS: Insulin Reg-LOW-Coverage SC SCH (16:41)
[2019-02-18] MEDS: Mupirocin 2% Ointment 15 GM TUBE TOP SCH (19:17)
[2019-02-18] MEDS: Potassium Chloride 20 mEq ER Tab PO SCH (19:19)
[2019-02-18] MEDS ORDERED: Melatonin 3 MG Tab PO SCH (22:00)
--- NOTE | 2019-02-18 22:42 | CP.PCM.PCO ---
<Jesu Thao - Last Filed: 02/18/19 22:36> Addendum Addendum: PGY1 House Doc Paged that patient is upset that she is not on her proper home medications. Talked to patient and she explained that she gets pain/nervous/anxious at night. Very rude to insurance writer and nursing staff during interview. She says she takes Lyrica 100mg x2, melatonin, hydroxizine, Zanaflex at night. Meds were ordered as one time doses and patient was politely told that we will sign out to day team in regards to proper medication reconciliation given the likelihood of Holiday () may have made it difficult to reach out to pharmacy. Nurse Transitional tried to contact patient's pharamacy however no response. Will endorse to day team. <Favian Alexandre - Last Filed: 02/19/19 05:29> Attending/Attestation - Attestation I have personally seen and examined this patient.: No I have fully participated in the care of the patient.: No I have reviewed all pertinent clinical information: No
[2019-02-19 06:08] LABS: HEMOGLOBIN 13.9 g/dL (12.0-16.0); MEAN CELL VOLUME 92.2 fl (80.0-105.0); MEAN CORPUSCULAR HEMOGLOBIN 31.2 pg (25.0-35.0); MEAN CORPUSCULAR HGB CONC 33.8 g/dl (31.0-37.0); MEAN PLATELET VOLUME 11.5 fl (7.0-11.0); RBC 4.46 10^6/uL (3.5-6.1); RED CELL DISTRIBUTION WIDTH 11.9 % (11.5-14.5); WHITE BLOOD COUNT 5.4 10^3/uL (4.5-11.0)
[2019-02-19] MEDS: Pantoprazole 40 mg EC Tab PO SCH (06:43)
[2019-02-19 07:06] LABS: ALBUMIN 3.7 g/dL (3.0-4.8); ALT/SGPT 16 U/L (7-56); AST/SGOT 25 U/L (14-36); BLOOD UREA NITROGEN 14 mg/dL (7-21); CALCIUM 8.7 mg/dL (8.4-10.5); GFR NON-AFRICAN AMERICAN > 60
[2019-02-19] MEDS: Insulin Reg-LOW-Coverage SC SCH ×4 (08:17→16:34)
[2019-02-19 08:29] VITALS: PULSE 67; TEMP 97.8; O2SAT 94
[2019-02-19] MEDS: Potassium Chloride 40 mEq/30 ml LIQ UD PO STA ×2 (08:41→08:53)
[2019-02-19] MEDS: Vancomycin 1gm in NS 250ml 1 GM/250 ML BAG IVPB SCH (08:41)
--- NOTE | 2019-02-19 09:29 | CP.PCM.PN ---
Subjective - Date & Time of Evaluation Date of Evaluation: 02/19/19 Time of Evaluation: 09:29 - Subjective Subjective: Podiatry Consult: Dr. Espinal/Sonia 54F patient seen and examined at bedside for R lower extremity abrasion and cellulitic changes. Patient resting comfortably and in NAD. No acute events overnight. She denies any pain to right leg abrasion and surgical site at this time. Denies nausea/vomiting/fever/chest pain. Objective - Vital Signs/Intake and Output Vital Signs (last 24 hours): Temp Pulse Resp BP Pulse Ox 97.8 F 67 20 113/63 94 L 02/19/19 08:28 02/19/19 08:28 02/19/19 08:28 02/19/19 08:28 02/19/19 08:28 - Medications Medications: Current Medications Acetaminophen (Tylenol 325mg Tab) 650 mg PO Q6H PRN PRN Reason: Pain, Mild (1-3) Carvedilol (Coreg) 12.5 mg PO BID [facility] Last Admin: 02/18/19 19:18 Dose: 12.5 mg Clotrimazole (Lotrimin 1%) 0 gm TOP BID [facility] Stop: 02/28/19 10:01 Last Admin: 02/18/19 19:19 Dose: 1 appl Dextrose (Dextrose 50% Inj) 0 ml IV STAT PRN; Protocol PRN Reason: Hypoglycemia Protocol Docusate Sodium (Colace) 100 mg PO DAILY PRN PRN Reason: Constipation Enoxaparin Sodium (Lovenox) 40 mg SC DAILY [facility]; Protocol Last Admin: 02/18/19 10:15 Dose: 40 mg Furosemide (Lasix) 40 mg PO TID [facility] Last Admin: 02/18/19 19:19 Dose: 40 mg Vancomycin HCl (Vancomycin 1gm) 1 gm in 250 mls @ 167 mls/hr IVPB Q12H [facility]; Protocol Stop: 02/27/19 08:01 Last Admin: 02/19/19 08:41 Dose: 167 mls/hr Dextrose (Dextrose 5% In Water 1000 Ml) 1,000 mls @ 0 mls/hr IV .Q0M PRN; Protocol PRN Reason: Hypoglycemia Protocol Potassium Chloride (Potassium Chloride 10 Meq/100 Ml) 10 meq in 100 mls @ 100 mls/hr IVPB Q2H [facility] Stop: 02/19/19 12:14 Insulin Human Regular (Humulin R Low) 0 units SC [facility]; Protocol Last Admin: 02/19/19 08:41 Dose: 3 u Isosorbide Dinitrate (Isordil) 10 mg PO DAILY [facility] Last Admin: 02/18/19 11:09 Dose: 10 mg Melatonin (Melatonin) 3 mg PO HS [facility] Last Admin: 02/19/19 00:02 Dose: 3 mg Meloxicam (Mobic) 15 mg PO DAILY PRN PRN Reason: Pain, moderate (4-7) Metolazone (Zaroxolyn) 5 mg PO DAILY [facility] Last Admin: 02/18/19 10:16 Dose: 5 mg Mupirocin (Bactroban Ointment) 0 gm TOP BID [facility] Last Admin: 02/18/19 19:17 Dose: 1 applic Pantoprazole Sodium (Protonix Ec Tab) 40 mg PO 0600 [facility] Last Admin: 02/19/19 06:43 Dose: 40 mg Potassium Chloride (K-Dur 20 Meq Er Tab) 20 meq PO BID [facility] Last Admin: 02/18/19 19:19 Dose: 20 meq Pregabalin (Lyrica) 100 mg PO BID [facility] Last Admin: 02/18/19 19:19 Dose: 100 mg Senna/Docusate Sodium (Senokot S 50 Mg-8.6 Mg) 1 tab PO DAILY PRN PRN Reason: Constipation Tramadol HCl (Ultram) 50 mg PO BID PRN PRN Reason: Pain, severe (8-10) Last Admin: 02/18/19 22:08 Dose: 50 mg - Labs Labs: 02/19/19 05:30 02/19/19 05:30 - Constitutional Appears: Non-toxic, No Acute Distress - Head Exam Head Exam: ATRAUMATIC, NORMOCEPHALIC - Eye Exam Eye Exam: Normal appearance - Extremities Exam Additional comments: Vascular: DP/PT WNL, CFT < 3 seconds, TG warm to warm from proximal to distal with mild increase in warmth noted to the abrasion site Ortho: Tenderness to palpation of abrasion, MMT 5/5, no gross deformities appreciated Neuro: Gross sensation intact, protective diminished Derm: Superficial abrasion noted to the anterior aspect of right leg. Mild serous drainage appreciated, erythema surround the abrasion site. No purulence, no tunneling, no tracking, no malodor. Surgical incision site appreciated to dorsal aspect of R foot secondary to neuropathy surgery, sutures intact, dried serous drainage present over surgical incision with small opening noted - Neurological Exam Neurological Exam: Alert, Awake, Oriented x3 - Psychiatric Exam Psychiatric exam: Normal Affect, Normal Mood Assessment and Plan - Assessment and Plan (Free Text) Assessment: 54F with right lower extremity abrasion with cellultic changes; resolving Plan: Patient seen and examined Discussed patient in detail with Dr. Espinal Local wound care: Bactroban, optifoam Surgical site dressed with DSD, ADDISON L wound culture: Coag neg staph R foot wound culture from surgical site ; pending C/w abx per ID recs
[2019-02-19] MEDS: metOLazone 5 MG TAB PO SCH (09:39)
[2019-02-19] MEDS: Potassium Chloride 20 mEq ER Tab PO SCH ×2 (09:40→17:16)
[2019-02-19] MEDS: Enoxaparin 40 mg Syringe SC SCH (09:41)
[2019-02-19] MEDS ORDERED: Potassium Chloride 20 mEq ER Tab PO ONE ×2 (10:37→13:00)
[2019-02-19] MEDS: Clotrimazole 1% Cream(30 gm) TOP SCH ×2 (11:00→17:17)
[2019-02-19] MEDS: Mupirocin 2% Ointment 15 GM TUBE TOP SCH ×2 (11:00→17:17)
--- NOTE | 2019-02-19 11:53 | US ---
HISTORY: Leg pain and swelling. Evaluate for DVT PHYSICIAN(S): Haroon Briceno MD. TECHNIQUE: Duplex sonography and color-flow Doppler with graded compression were used to evaluate the deep venous systems of both lower extremities. The exam is somewhat limited by body habitus and FINDINGS: The visualized deep venous systems of both lower extremities are sonographically normal and compressible. Normal wave forms and augmentation are seen. There is no sonographic evidence for deep venous thrombosis in the visualized segments of both lower extremities. IMPRESSION: No sonographic evidence for deep venous thrombosis in the visualized segments of both lower extremities. Limited study.
[2019-02-19 14:28] LABS: BLOOD UREA NITROGEN 14 mg/dL (7-21); CALCIUM 8.7 mg/dL (8.4-10.5); GFR NON-AFRICAN AMERICAN > 60
[2019-02-19] MEDS ORDERED: Potassium Chloride 20 mEq ER Tab PO STA (15:35)
--- NOTE | 2019-02-19 15:40 | PN ---
DATE: 02/19/2019 SUBJECTIVE: The patient is in bed, in no acute distress. PHYSICAL EXAMINATION: VITAL SIGNS: On exam, temperature is 97, blood pressure is 113/60, respiratory 20, heart rate of 67. HEENT: Examination of HEENT is unremarkable. NECK: Supple. LUNGS: Have decreased breath sounds. HEART: Normal S1, S2. ABDOMEN: Soft. EXTREMITIES: Examination of leg is much improved. LABORATORY DATA: Laboratory examination reveals a white count of 5.4, hemoglobin of 13. Chemistries are noted. Microbiology reveals the patient has a coag-negative staph from the right leg. The blood cultures are negative. ASSESSMENT AND PLAN: A 54-year-old female, who is ALLERGIC TO PENICILLIN, who is admitted with hypertension, history of congestive heart failure, rheumatoid arthritis, admitted with a right leg cellulitis, may be able to switch to p.o. doxycycline to complete therapy. Rickey Pelayo MD
--- NOTE | 2019-02-19 15:59 | CP.PCM.DIS ---
Provider - Provider Date of Admission: 02/18/19 00:55 Attending physician: Serena Wells MD Consults: 02/18/19 02:33 Physician Consult Routine Comment: Consulting Provider: Kleber Kirkland Consulting Physician: Kleber Kirkland Reason for Consult: cellulitis of right lower ext 02/18/19 02:35 Physician Consult Routine Comment: Consulting Provider: Yadira Scott Consulting Physician: Yadira Scott Reason for Consult: RLE cellulitis 02/18/19 03:52 Social Work Referral Routine Comment: SAADIA SCORE 10 Physician Instructions: Reason For Exam: PROTOCOL 02/18/19 04:01 Inpatient CINDER SNAPPER Core Measures Referral Routine Comment: Physician Instructions: Reason For Exam: PTOTOCOL Nursing Referral for Wound Care Routine Comment: Physician Instructions: Reason For Exam: PROTOCOL Transition In Care/Readmission Reduction Routine Comment: Physician Instructions: Reason For Exam: PROTOCOL Time Spent in preparation of Discharge (in minutes): 45 Hospital Course - Lab Results Lab Results: Micro Results 02/18/19 03:45 Leg - Right Gram Stain - Final 02/18/19 03:45 Leg - Right Wound Culture - Final Coagulase Neg Staphylococcus 02/18/19 01:17 Blood-Venous Blood Culture - Preliminary NO GROWTH AFTER 24 HOURS 02/18/19 01:00 Blood-Venous Blood Culture - Preliminary NO GROWTH AFTER 24 HOURS Most Recent Lab Values WBC 5.4 10^3/uL (4.5-11.0) D 02/19/19 05:30 RBC 4.46 10^6/uL (3.5-6.1) 02/19/19 05:30 Hgb 13.9 g/dL (12.0-16.0) 02/19/19 05:30 Hct 41.1 % (36.0-48.0) 02/19/19 05:30 MCV 92.2 fl (80.0-105.0) 02/19/19 05:30 MCH 31.2 pg (25.0-35.0) 02/19/19 05:30 MCHC 33.8 g/dl (31.0-37.0) 02/19/19 05:30 RDW 11.9 % (11.5-14.5) 02/19/19 05:30 Plt Count 177 10^3/uL (120.0-450.0) 02/19/19 05:30 MPV 11.5 fl (7.0-11.0) H 02/19/19 05:30 Neut % (Auto) 60.1 % (50.0-68.0) 02/18/19 01:00 Lymph % (Auto) 27.5 % (22.0-35.0) 02/18/19 01:00 [place] % (Auto) 10.5 % (1.0-6.0) H 02/18/19 01:00 Eos % (Auto) 1.7 % (1.5-5.0) 02/18/19 01:00 Baso % (Auto) 0.2 % (0.0-3.0) 02/18/19 01:00 Lymph # (Auto) 2.3 (1.2-3.4) 02/18/19 01:00 [place] # (Auto) 0.9 (0.1-0.6) H 02/18/19 01:00 Eos # (Auto) 0.1 (0.0-0.7) 02/18/19 01:00 Baso # (Auto) 0.02 K/mm3 (0.0-2.0) 02/18/19 01:00 Absolute Neuts (auto) 5.10 (1.4-6.5) 02/18/19 01:00 Sodium 133 mmol/L (132-148) 02/19/19 14:00 Potassium 3.2 mmol/L (3.6-5.0) L 02/19/19 14:00 Chloride 89 mmol/L (98-107) L 02/19/19 14:00 Carbon Dioxide 34 mmol/L (21-33) H 02/19/19 14:00 Anion Gap 13 (10-20) 02/19/19 14:00 BUN 14 mg/dL (7-21) 02/19/19 14:00 Creatinine 0.6 mg/dl (0.7-1.2) L 02/19/19 14:00 Est GFR ( Amer) > 60 02/19/19 14:00 Est GFR (Non-Af Amer) > 60 02/19/19 14:00 POC Glucose (mg/dL) 212 mg/dL (65-110) H 02/19/19 11:25 Random Glucose 257 mg/dL (70-110) H 02/19/19 14:00 Hemoglobin A1c 7.3 % (4.2-6.5) H 02/18/19 10:45 Calcium 8.7 mg/dL (8.4-10.5) 02/19/19 14:00 Magnesium 1.9 mg/dL (1.7-2.2) 02/18/19 10:45 Total Bilirubin 0.4 mg/dL (0.2-1.3) 02/19/19 05:30 AST 25 U/L (14-36) 02/19/19 05:30 ALT 16 U/L (7-56) 02/19/19 05:30 Alkaline Phosphatase 81 U/L (38-126) 02/19/19 05:30 Total Protein 7.3 g/dL (5.8-8.3) 02/19/19 05:30 Albumin 3.7 g/dL (3.0-4.8) 02/19/19 05:30 Globulin 3.6 gm/dL 02/19/19 05:30 Albumin/Globulin Ratio 1.0 (1.1-1.8) L 02/19/19 05:30 Discharge Exam - Head Exam Head Exam: ATRAUMATIC, NORMOCEPHALIC Discharge Plan - Discharge Medications Prescriptions: Clotrimazole 1% Cream [Lotrimin 1%] 1 gm TOP BID #5 tube Doxycycline Hyclate 100 mg PO BID 5 Days #10 capsule Potassium Chloride [K-Dur 20 mEq ER Tab] 20 meq PO BID 5 Days #10 tab - Follow Up Plan Condition: GOOD Disposition: NURSING FACILITY MEDICAID CERT Instructions: Heart Healthy Diet, Low Cholesterol, Saturated Fat, and Trans Fat Diet , Cellulitis (Skin Infection), Adult (DC) Additional Instructions: Please take the doxycycline 100 mg twice a day for 5 days Apply the clotrimazole cream in-between toes for 5 days Resume the rest of your home medications Please follow up with your primary care doctor Mahad in 3-5 days Please return if the symptoms returns or call 911. Referrals: [facility] [Provider Group] Olena Tobin MD [Family Provider] -
[2019-02-19 17:17] VITALS: BP 137/89
[2019-02-19 21:38] LABS: HEPATITIS B SURFACE AG Negative (NEGATIVE)
[2019-02-19 21:44] LABS: HEPATITIS A IGM NEGATIVE (NEGATIVE); HEPATITIS B CORE AB NEGATIVE (NEGATIVE)
[2019-02-19 21:55] LABS: HEPATITIS C ANTIBODY NEGATIVE (NEGATIVE)
== END 2019-02-19 18:58 | disposition home or self-care (01) ==
LOC: ED 00:18 → ERH 00:55 → 3RSO 03:01
PROVIDERS: ADMIT Internal Medicine; ATTEND Internal Medicine
DX: L03.115 Cellulitis of right lower limb (principal); B35.9 Dermatophytosis, unspecified; S80.811A Abrasion, right lower leg, initial encounter; I11.0 Hypertensive heart disease with heart failure; I50.9 Heart failure, unspecified; G62.9 Polyneuropathy, unspecified; I73.9 Peripheral vascular disease, unspecified; M06.9 Rheumatoid arthritis, unspecified; E66.9 Obesity, unspecified; Z68.36 Body mass index [BMI] 36.0-36.9, adult; Z88.0 Allergy status to penicillin
CPT/HCPCS: 36415; 80053; 80074; 81025; 82948; 83036; 83735; 85025; 85027; 87040; 87070; 87389; 93970; 96361; 96365; 96366; 96372; 96375; 96376; 99285; G0378; J1650; J3480